=== PATIENT | female | born 1960 | race Caucasian/White ===

== ENCOUNTER 2022-11-24 06:57 | Day surgery (SDC) | payer MEDICAID, SELFPAY ==
[2022-11-24] VITALS (11 sets, daily range): BP systolic 124–149; BP diastolic 57–75; PULSE 60–68; RESP 11–20; TEMP 36.2–36.7; O2SAT 91–99; BMI 30.6
[2022-11-24] MEDS: SODIUM CHLORIDE 0.9 % (FLUSH) 10 ML SYRINGE IVF (07:33)
[2022-11-24] MEDS: LACTATED RINGERS 1000 ML 1,000 ML 100 ML IV (07:33)
[2022-11-24] MEDS: CEFAZOLIN 2 GM INJ IVP (07:46)
[2022-11-24] MEDS: BUPIVACAINE 0.25% 30 ML INJECTION (08:00)
--- NOTE | 2022-11-24 08:45 | W.ANESCHARGE ---
Anesthesia Charges Start Date/Time Anesthesia Start Date: 11/24/22 Anesthesia Start Time: 07:36 Stop Date/Time Anesthesia Stop Date: 11/24/22 Anesthesia Stop Time: 08:53
--- NOTE | 2022-11-24 08:47 | PM.GSPRC ---
Operative Note Pre-op diagnosis: Umbilical hernia, epigastric hernia Post-op diagnosis: Same Type of Procedure: 1. Open repair of umbilical hernia 2. Open repair of epigastric hernia Indications: Patient is a 62-year-old female who presented to clinic with symptomatic hernias. Different treatment options were reviewed, please see consultation note for full discussion. Risks and benefits of operative intervention were discussed at length with the patient. Risks included but was not limited to: Bleeding, infection, risk of damage to surrounding structures, possible need for additional procedures and postoperative complications such as pneumonia, pulmonary emboli or TN. All questions and concerns were addressed with the patient agreeing to proceed. Procedure Description: After discussing the risks and benefits of the procedure, the patient signed informed consent.? The operative site was marked and the patient was brought to the operating room and placed on the operating table in supine position.? Care was taken to pad the patient's pressure points.?? The patient was then intubated by anesthesia.?? The operative site was then prepped and draped in the usual sterile fashion.? A time-out was then performed. A curvilinear incision was made at the umbilicus. Dissection was carried down into the subcutaneous tissue using cautery. The hernia sac was encountered and care was taken to not enter it. Dissection was taken down to the fascia, and the umbilical stock was carefully dissected off of the hernia sac. Once the hernia sac was dissected out circumferentially, the incarcerated preperitoneal fat was partially amputated to allow for reduction. This was passed off to be sent for disposal. The fascial edges were then cleared circumferentially. The hernia was 1 cm in size and so the decision was made for primary closure. The defect was closed with interrupted 0 Nurolon suture. Attention was then directed to the epigastric hernia. Subcutaneous tissue was cleared off superior to the umbilical defect, with evidence of incarcerated preperitoneal fat. This was partially amputated, to allow for reduction. The fat was passed off to be sent for disposal. The fascial edges were then cleared circumferentially. The hernia was 5 mm in size and so the decision was made for primary closure. The defect was closed with interrupted 0 Nurolon suture. Local anesthetic was injected into the fascia, skin and subcutaneous tissues. The umbilicus was reapproximated to the fascia. The skin was then closed with running absorbable suture. A sterile dressing was then applied. ? The patient was then woken and transported to the recovery area in stable condition. ? The patient tolerated the procedure well. Findings: Small umbilical and epigastric hernias, both repaired primarily. Anesthesia: GETA Surgeon: Shereen Malhotra MD Estimated blood loss (mL): 2 Condition: stable Disposition: PACU
--- NOTE | 2022-11-24 08:54 | W.ANESCHARGE ---
Anesthesia Charges Start Date/Time Anesthesia Start Date: 11/24/22 Anesthesia Start Time: 07:36 Stop Date/Time Anesthesia Stop Date: 11/24/22 Anesthesia Stop Time: 08:53
[2022-11-24] MEDS: OXYCODONE 5 MG TABLET PO (10:30)
== END 2022-11-24 10:53 | disposition home or self-care (01) ==
PROVIDERS: PCP Physician Assistant Medical; Visit Provider Surgery
PROC: (CPT 49592; principal; 2022-11-24 07:30)
DX: K42.0 Umbilical hernia with obstruction, without gangrene (principal); K43.6 Other and unspecified ventral hernia with obstruction, without gangrene
CPT/HCPCS: 49592; 00830; A9270; J0330; J0665; J0690; J1100; J1885; J2250; J2405; J2704; J2710; J3010; J7120

== ENCOUNTER 2023-03-14 21:08 | Emergency (ER) | payer MEDICAID, SELFPAY ==
[2023-03-14 21:24] VITALS: BP 153/74; PULSE 63; RESP 16; TEMP 36.4; O2SAT 97; BMI 27.5
--- NOTE | 2023-03-14 21:46 | CRLHL7_ITS ---
For Patients: As a result of the Century Cures Act, medical imaging exams and procedure reports are released immediately into your electronic medical record. You may view this report before your referring provider. If you have questions, please contact your health care provider. INDICATION: Trauma. TECHNIQUE: Whole left ankle radiographs, 3 views. COMPARISON: Left foot radiographs, 03/03/2023. FINDINGS: Acute comminuted displaced fractures of medial and lateral malleolus, with subtle asymmetric widening of the lateral ankle mortise joint space. The talar dome remains smooth. Moderate associated soft tissue swelling. No radiopaque foreign bodies. The calcaneus is intact. Small plantar calcaneal osteophyte. Minimal spurring of the dorsal midfoot. IMPRESSION : Acute comminuted displaced bimalleolar fracture. There is subtle widening of the lateral ankle mortise joint space, which raises the possibility of syndesmotic injury. Moderate overlying soft tissue swelling. Dictated by Forrest Bansal MD @ 03/14/2023 10:17:37 PM (Electronically Signed)
--- NOTE | 2023-03-14 22:11 | ED_ITS ---
HPI - Extremity Injury (Lower) General Chief Complaint: Extremity Pain/Injury, Lower Stated Complaint: Fall- injured ankle Time Seen by Provider: 03/14/23 21:44 History of Present Illness HPI Narrative: Patient is a 62-year-old female presenting for left ankle pain. She says few hours ago she was walking down the steps when she tripped and twisted her left ankle. She caught herself before she fell and denies injuring anything else. States he is unable to walk in her left ankle at that this time in is pain all around the ankle. There is swelling around the ankle. Denies any foot, knee, hip pain. No other injuries noted. Related Data Home Medications Medication Instructions Recorded Confirmed albuterol sulfate 90 mcg/actuation 1 inh inhalation Q4-6H PRN 11/23/22 03/03/23 aerosol inhaler alendronate 70 mg tablet 70 mg PO QWEEK 11/23/22 03/03/23 amlodipine 10 mg tablet 10 mg PO DAILY 11/23/22 03/03/23 bupropion HCl 150 mg 24 hr tablet, 150 mg PO DAILY 11/23/22 03/03/23 extended release cholecalciferol (vitamin D3) 25 1,000 unit PO DAILY 11/23/22 03/03/23 mcg (1,000 unit) capsule escitalopram oxalate 20 mg tablet 20 mg PO DAILY 11/23/22 03/03/23 levothyroxine 50 mcg capsule 50 mcg PO DAILY 11/23/22 03/03/23 omeprazole 20 mg capsule,delayed 20 mg PO DAILY 11/23/22 03/03/23 release propranolol 80 mg capsule,24 80 mg PO DAILY 11/23/22 03/03/23 hr,extended release temazepam 15 mg capsule (Restoril) 15 mg PO QHS 11/23/22 03/03/23 Previous Rx's Medication Instructions Recorded sennosides 8.6 mg capsule (senna) 8.6 mg PO DAILY PRN constipation 11/24/22 #90 caps Allergies Allergy/AdvReac Type Severity Reaction Status Date / Time No Known Drug Allergies Allergy Verified 03/03/23 16:17 Review of Systems Narrative: Negative unless stated in HPI PFSH PFSH Medical History (Updated 03/14/23 @ 22:32 by Abel Dawn, DO) Plantar fasciitis ?M72.2 - Plantar fascial fibromatosis (ICD-10) COPD (chronic obstructive pulmonary disease) with chronic bronchitis ?J44.9 - Chronic obstructive pulmonary disease, unspecified (ICD-10) Hypothyroidism ?E03.9 - Hypothyroidism, unspecified (ICD-10) Unspecified essential hypertension ?I10 - Essential (primary) hypertension (ICD-10) Surgical History (Updated 11/23/22 @ 07:12 by Rosario Galvez RN) H/O total hysterectomy ?Z90.710 - Acquired absence of both cervix and uterus (ICD-10) Social History Smoking Status: Former smoker What tobacco products do you use: cigarettes Smoking quit date/years: >15 years ago How often do you have a drink containing alcohol: never How often do you have six or more drinks on one occasion: Never AUDIT-C Alcohol total score: 0 Non-prescribed substance use: denies use Caffeine: Yes Exam Narrative: Exam Narrative: Const: Well-nourished, Well-developed, in mild distress Eyes: PERRL, no conjunctival injection, and symmetrical lids HENT: Atraumatic external nose and ears. Moist mucous membranes. CVS: Peripheral pulses 2+ and equal in all extremities MSK: Swelling noted to left ankle with severe tenderness noted throughout the ankle. No tenderness noted to the foot, knee, hip. Skin: Warm, Dry. No rashes or lesions. Neuro: Normal Muscle tone, No focal neurological deficits. Psych: Awake, Alert, & Oriented x3. Appropriate mood and affect. Const: Vital Signs, click to edit/add: Vital Signs - 24 hr 03/14/23 21:24 Temperature 97.5 F L Pulse Rate [Pulse Oximeter] 63 Respiratory Rate 16 Blood Pressure [Ri ght Upper Arm] 153/74 H Pulse Oximetry 97 Oxygen Delivery Me thod Room Air Course Vital Signs Vital signs: Initial Vital Signs Temperature 97.5 F L 03/14/23 21:24 Temperature Source Temporal Artery Scan 03/14/23 21:24 Pulse Rate 63 03/14/23 21:24 Respiratory Rate 16 03/14/23 21:24 Blood Pressure 153/74 H 03/14/23 21:24 Blood Pressure Mean 100 03/14/23 21:24 Blood Pressure Position Supine 03/14/23 21:24 Pulse Oximetry 97 03/14/23 21:24 Oxygen Delivery Method Room Air 03/14/23 21:24 Vital Signs Temperature 97.5 F L 03/14/23 21:24 Pulse Rate 63 03/14/23 21:24 Respiratory Rate 16 03/14/23 21:24 Blood Pressure 153/74 H 03/14/23 21:24 Pulse Oximetry 97 03/14/23 21:24 Oxygen Delivery Method Room Air 03/14/23 21:24 Temperature 97.5 F L 03/14/23 21:24 Pulse Rate 63 03/14/23 21:24 Respiratory Rate 16 03/14/23 21:24 Blood Pressure 153/74 H 03/14/23 21:24 Pulse Oximetry 97 03/14/23 21:24 Oxygen Delivery Method Room Air 03/14/23 21:24 Medications Administered Medications: Discontinued Medications Generic Name Dose Route Start Last Admin Trade Name Amberly PRN Reason Stop Dose Admin Ketorolac Tromethamine 30 mg 03/14/23 21:46 03/14/23 22:20 Ketorolac 30 Mg/Ml Inj IM 03/14/23 21:47 30 mg ONCE ONE Administration Oxycodone HCl 5 mg 03/14/23 22:25 03/14/23 22:35 Oxycodone 5 Mg Tablet PO 03/14/23 22:26 5 mg ONCE ONE Administration MDM - Extremity Injury (Lower) MDM Narrative Medical decision making narrative: Patient is 62 year female presenting for left ankle pain. She fell hurting go earlier today. No other injuries noted. We did x-rays of the ankle the clear signs for fracture. Patient will be given a shot of Toradol for pain. X-rays returned showing a bimalleolar fracture with. Patient be placed in a splint and discharged home with oxycodone. She follow-up with orthopedics. Imaging Data Left ankle x-ray: Radiologist's impression: Acute comminuted displaced bimalleolar fracture. There is subtle widening of the lateral ankle mortise joint space, which raises the possibility of syndesmotic injury. Moderate overlying soft tissue swelling. Dictated by Forrest Bansal MD @ 03/14/2023 10:17:37 PM Discharge Plan Discharge Clinical Impression: Ankle fracture Patient Disposition: Home, Self-Care Condition: Stable Instructions: Ankle Fracture (DC) Additional Instructions: Nonweightbearing until cleared by Orthopedics. Follow up with them outpatient. Take Tylenol ibuprofen for pain and if that is not helping use the oxycodone. Return emergency department if you develop numbness for severe pain to ankle or foot. Prescriptions: No Action albuterol sulfate 90 mcg/actuation HFA aerosol inhaler 1 inh inhalation Q4-6H PRN alendronate 70 mg tablet 70 mg PO QWEEK amlodipine 10 mg tablet 10 mg PO DAILY bupropion HCl 150 mg tablet extended release 24 hr 150 mg PO DAILY cholecalciferol (vitamin D3) 25 mcg (1,000 unit) capsule 1,000 unit PO DAILY escitalopram oxalate 20 mg tablet 20 mg PO DAILY levothyroxine 50 mcg capsule 50 mcg PO DAILY omeprazole 20 mg capsule,delayed release(DR/EC) 20 mg PO DAILY propranolol 80 mg capsule,extended release 24hr 80 mg PO DAILY temazepam [Restoril] 15 mg capsule 15 mg PO QHS senna 8.6 mg capsule 8.6 mg PO DAILY PRN (Reason: constipation) Qty: 90 0RF Follow Up/Referrals: Elo Arriaga PA-C [Primary Care Provider] - Stand Alone Forms: [facility] Info Instructions Procedures Orthopedic Splinting/Casting Left ankle: Side: left Lower Extremity Injury Location: ankle Lower extremity immobilizer: posterior splint Applied by clinician: MD/DO Other Orthopedic Equipment: crutches Conclusion: patient tolerated procedure
[2023-03-14] MEDS: KETOROLAC 30 MG/ML inj IM (22:20)
[2023-03-14] MEDS: OXYCODONE 5 MG TABLET PO (22:35)
[2023-03-14 23:19] VITALS: BP 172/75; PULSE 63; RESP 20; O2SAT 96
== END 2023-03-14 23:27 | disposition home or self-care (01) ==
PROVIDERS: Emergency Provider Student in an Organized Health Care Education/Training Program; PCP Physician Assistant Medical
DX: S82.842A Displaced bimalleolar fracture of left lower leg, initial encounter for closed fracture (principal)
CPT/HCPCS: 29125; 73610; 96372; 99283; 99284; A9270; J1885

== ENCOUNTER 2023-03-22 06:56 | Day surgery (SDC) | payer OTHER, SELFPAY ==
[2023-03-22] VITALS (15 sets, daily range): BP systolic 102–155; BP diastolic 54–81; PULSE 53–76; RESP 16; TEMP 36.3–36.6; O2SAT 93–98; BMI 28.3
[2023-03-22] MEDS: LACTATED RINGERS 1000 ML 1,000 ML 100 ML IV (07:05)
--- NOTE | 2023-03-22 07:27 | W.PM.H&PU ---
History & Physical Update History & Physical Update H&P Reviewed and patient assessed: No changes noted
[2023-03-22] MEDS: fentaNYL 100 MCG/2 ML inj IVP (07:35)
[2023-03-22] MEDS: ETHYL CHLORIDE 1 APPLICATION 1 APPLIC TOPICAL (07:40)
--- NOTE | 2023-03-22 07:41 | SUR.PREOP ---
TIME?OUT:?0735 PT/RN/MDA?VERIFICATION?OF?SURGICAL?SITE,?PROCEDURE,?AND?CONSENT OBTAINED?PRIOR?TO?INVASIVE?PROCEDURE.
--- NOTE | 2023-03-22 07:50 | W.PM.NB ---
Nerve Block Nerve Block Time Seen by Provider: 07:44 Date Seen: 03/22/23 Type of block requested by surgeon for post-operative analgesia: popliteal Side: left Time out performed: Yes Verification of patient name: Yes Verification of date of : Yes Site marking: site marked Name of person performing procedure: Chon Continuous monitoring Was continuous monitoring of O2 sat, B/P, lamination operator, recorded every 15 minutes?: Yes Procedure Checklist: sterile prep, needles and gloves Ultrasound guided. Images saved: Yes Medications given in 5ml increments after negative aspiration: Ropivicaine %: 0.5 mL: 20 Needle gauge: 22 Patient tolerated procedure well: Yes Additional comments: Needle noted adjacent to nerve Block Charges Block Charge (with Pro Fee): Sciatic Nerve Use of Ultrasound Machine for Block: Yes- US Guidance/pain block
--- NOTE | 2023-03-22 07:50 | W.PM.NB ---
Nerve Block Nerve Block Time Seen by Provider: 07:44 Date Seen: 03/22/23 Type of block requested by surgeon for post-operative analgesia: adductor canal Side: left Time out performed: Yes Verification of patient name: Yes Verification of date of : Yes Site marking: site marked Name of person performing procedure: Chon Continuous monitoring Was continuous monitoring of O2 sat, B/P, cardiac monitor technician, recorded every 15 minutes?: Yes Procedure Checklist: sterile prep, needles and gloves Ultrasound guided. Images saved: Yes Medications given in 5ml increments after negative aspiration: Ropivicaine %: 0.5 mL: 20 Needle gauge: 20 Patient tolerated procedure well: Yes Additional comments: Needle noted adjacent to nerve Block Charges Block Charge (with Pro Fee): Femoral Nerve Use of Ultrasound Machine for Block: Yes- US Guidance/pain block
--- NOTE | 2023-03-22 07:53 | W.ANESCHARGE ---
Anesthesia Charges Start Date/Time Anesthesia Start Date: 03/22/23 Anesthesia Start Time: 08:02 Stop Date/Time Anesthesia Stop Date: 03/22/23 Anesthesia Stop Time: 11:01
[2023-03-22] MEDS: CEFAZOLIN 2 GM INJ IVP (08:21)
--- NOTE | 2023-03-22 08:30 | CRLHL7_ITS ---
For Patients: As a result of the Cures Act, medical imaging exams and procedure reports are released immediately into your electronic medical record. You may view this report before your referring provider. If you have questions, please contact your health care provider. Indication: Left ORIF Bimalleolar Ankle Technique: Three views left ankle. Fluoroscopic time 67.7 seconds. IMPRESSION: Fluoroscopic guidance for open reduction internal fixation of distal fibula and medial malleolus fracture. Dictated by Leoncio Cox MD @ 03/22/2023 10:11:53 AM (Electronically Signed)
--- NOTE | 2023-03-22 10:15 | PM.ORPRC ---
Procedure Note Date of procedure: 03/22/23 Procedure: PREOPERATIVE DIAGNOSES: 1. Left ankle trimalleolar fracture, closed, acute POSTOPERATIVE DIAGNOSES: 1. Left ankle trimalleolar fracture, closed, acute PROCEDURE: 1. Left ankle bimalleolar fracture open reduction internal fixation. SURGEON: Manish Mccoy MD CAMPUS SECURITY DIRECTOR: Abel Godoy P.A.-C.; An medical records assistant was critical for this case to aide in patient positioning, leg manipulation, tissue retraction, closure, and splinting. ANESTHESIA: Spinal with popliteal and adductor canal blocks IMPLANTS: Arthrex distal fibular locking plate with 2.7 distal locking and 3.5mm proximal nonlocking & locking screws for lateral malleolus fixation; cannulated 4.0 mm partially threaded screw x2 for medial malleolar fixation. TOURNIQUET: 72 minutes at 250 mmHg. INDICATIONS: The patient is a pleasant 62-year-old female who sustained a left ankle injury. Radiographic images confirmed displaced trimalleolar ankle fracture. Given these findings, surgery was recommended to stablize the ankle and allow healing in an anatomic position. Prior to surgery, risks and benefits of the procedure were discussed with patient all questions were answered and informed consent was obtained. FINDINGS: Closed, displaced lateral malleolus fracture, displaced medial malleolus fracture, and a small minimally displaced posterior malleolus fracture. PROCEDURE: Patient was seen preoperatively. Operative site was marked. Abductor and popliteal nerve blocks were then performed by anesthesia staff. The patient was brought to the operating room. Spinal anesthesia was administered and patient was then placed in supine position on the or table. She was given 2 g IV Ancef preoperatively for prophylaxis. A tourniquet placed on the patient's left thigh and left lower extremities prepped and draped in usual sterile fashion. A surgical time-out performed confirming patient identity surgical site surgical procedure. The operative extremity was elevated and exsanguinated, and the tourniquet inflated to 250 mmHg. A longitudinal incision was made overlying the posterior border of the distal fibula. Sharp incision was carried through skin and subcutaneous tissue, while protecting any crossing neurologic structures. The fracture was identified, and cleared of interposed periosteum and fracture hematoma. The surgical site was thoroughly irrigated with normal saline. The fracture was reduced and temporarily held with reduction clamps. An Arthrex distal fibular locking plate was selected and contoured to fit along the lateral aspect of distal fibula. Fluoroscopic imaging confirmed correct plate length and anatomic reduction of the fracture. Plate was fixed proximally with 1 nonlocking screw. Was then fixed distally with unicortical 2.7 mm locking screws. Two additional bicortical locking screws were placed proximally. Attention was then directed to the medial side ankle. A longitudinal incision was made over the medial malleolus incision was carried through subcutaneous tissues. Care was taken to preserve the greater saphenous vein and saphenous nerve. Fracture site was identified anatomic reduction was performed and held in position with a pointed reduction clamp. K-wires for 4.0 mm cannulated screws were then placed in a retrograde fashion across the fracture site. Correct position of the K-wires was confirmed with fluoroscopic imaging. These were then overdrilled with a 2.0 mm drill. 4.0 mm cannulated screws measuring 50 mm in length were then placed with washers over the guidewires. After securing screws into position, the K-wires were removed. Final fluoroscopic images including external rotation stress imaging confirmed anatomic reduction of the medial and lateral malleolus fractures with good placement of the screws and plate.. Ankle mortise was symmetric with no widening of the syndesmosis or medial clear space on stress imaging. The posterior malleolus fracture was also confirmed to be in near anatomic position. This small fracture fragment did not require surgical stabilization. At this stage, the wound was thoroughly irrigated with normal saline. Deep subcutaenous tissues were closed over the plate with #0 Vicryl. The tourniquet was deflated. Total tourniquet time was 72 minutes. Hemostasis achieved with electrocautery. Subcutaneous tissues were closed with 2-0 Vicryl for the subcutaneous tissues. 2-0 Stratafix and 4-0 stratafix was used for closure of the subcuticular layers. Skin was then closed with Exofin glue. Sterile dressings were then applied followed by well-padded posterior short-leg splint. The patient was awoken from anesthesia and transferred to the PACU in stable condition. PLAN: 1. Elevate operative extremity. 2. Encourage ice. 3. Tylenol and oxycodone for pain as needed. 4. Follow up in orthopedic clinic in 2 weeks for splint removal and wound check. 5. Nonweightbearing operative extremity. 6. Discharge home.
--- NOTE | 2023-03-22 11:01 | W.ANESCHARGE ---
Anesthesia Charges Start Date/Time Anesthesia Start Date: 03/22/23 Anesthesia Start Time: 08:02 Stop Date/Time Anesthesia Stop Date: 03/22/23 Anesthesia Stop Time: 11:01
== END 2023-03-22 13:07 | disposition home or self-care (01) ==
PROVIDERS: PCP Physician Assistant Medical; Visit Provider Orthopaedic Surgery
PROC: (CPT 27814; principal; 2023-03-22 08:30)
DX: S82.852A Displaced trimalleolar fracture of left lower leg, initial encounter for closed fracture (principal); G89.18 Other acute postprocedural pain
CPT/HCPCS: 27814; 01480; 64445; 64447; 73600; 76000; 76942; C1713; J0690; J2405; J2704; J3010; J7120

== ENCOUNTER 2023-05-29 14:30 | Outpatient (RCR) | payer OTHER, SELFPAY | END 2023-08-24 10:40 | disposition home or self-care (01) | PROVIDERS: PCP Physician Assistant Medical; Visit Provider Physician Assistant Surgical | DX: Z98.890 Other specified postprocedural states (principal); Z87.81 Personal history of (healed) traumatic fracture; Z74.09 Other reduced mobility; R26.9 Unspecified abnormalities of gait and mobility; R29.898 Other symptoms and signs involving the musculoskeletal system; Z51.89 Encounter for other specified aftercare | CPT/HCPCS: 97110; 97116; 97161 ==

== ENCOUNTER 2023-06-12 10:33 | Day surgery (SDC) | payer OTHER, SELFPAY ==
[2023-06-12] VITALS (14 sets, daily range): BP systolic 115–158; BP diastolic 65–97; PULSE 58–75; RESP 10–16; TEMP 36.1–36.8; O2SAT 88–99; BMI 33.2
--- OUTSIDE RECORDS SUMMARY | 2023-06-12 10:36 | XMS_ITS | Clinical Summary ---
Author Name Unknown Organization [employer] [facility] Address [place], [place] [address] Care Team Providers Care Hvac Manager Name Role Phone Elo Arriaga Primary Care Provider Allergies No known active allergies Medications Medication Sig Dispensed Refills Start Date End Date Status lactobacillus rhamnosus, GG, (CULTURELLE) 10 billion cell capsule Take 1 capsule by mouth once daily if needed for Diarrhea. 0 10/16/19 14 Active MISCELLANEOUS MEDICAL SUPPLY (GRADUATED COMPRESSION STOCKINGS)Indicatio ns:Restless legs syndrome (RLS) 20-30 mm/Hg calf high compression stockings - Venous insufficiency 6 Packet 0 05/22/19 15 Active cholecalciferol (VITAMIN D) 1,000 unit capsule Take 1 capsule by mouth once daily. 0 12/29/19 18 Active meclizine (ANTIVERT) 25 mg tabletIndications:V ertigo Take 1 Tablet (25 mg) by mouth every 8 hours if needed for Vertigo. 30 Tablet 0 12/28/19 22 Active polyethylene glycoL (MIRALAX) 17 gram/scoop powderIndications:C onstipation, unspecified constipation type Mix 1 scoop (17 g) in liquid then take by mouth once daily. 510 g 1 09/22/19 23 Active amLODIPine (NORVASC) 10 mg tabletIndications:H TN (hypertension) TAKE ONE TABLET BY MOUTH ONE TIME DAILY 90 Tablet 1 05/29/19 24 Active alendronate (FOSAMAX) 70 mg tabletIndications:O steoporosis, unspecified osteoporosis type, unspecified pathological fracture presence Take on empty stomach with full glass of water. Do not lie down for 1 hr.TAKE 1 TABLET BY MOUTH ONCE WEEKLY IN THE MORNING ON AN EMPTY STOMACH WITH A BIG GLASS OF WATER. DO NOT LIE DOWN FOR 60 MINUTES AFTERWARDS. 13 Tablet 3 06/09/19 24 Active buPROPion (WELLBUTRIN XL) 150 mg Extended-Release tabletIndications:D epression, major, single episode, moderate (HC) Take 1 Tablet (150 mg) by mouth once daily. 90 Tablet 3 06/09/19 24 Active escitalopram oxalate (LEXAPRO) 20 mg tabletIndications:D epression, major, single episode, moderate (HC) TAKE ONE TABLET BY MOUTH EVERY DAY IN THE MORNING. 90 Tablet 3 06/09/19 24 Active levothyroxine (SYNTHROID) 50 mcg tabletIndications:O ther specified hypothyroidism Take 1 Tablet (50 mcg) by mouth before breakfast. 90 Tablet 06/09/19 24 Active omeprazole (PRILOSEC) 20 mg Delayed-Release capsuleIndications: Gastrointestinal hemorrhage, unspecified gastrointestinal hemorrhage type Take 1 Capsule (20 mg) by mouth two times daily before meals. 180 Capsule 06/09/19 24 Active propranolol ER (INDERAL LA) 80 mg Cs24 Sustained-Release capsuleIndications: Essential hypertension Take 1 Capsule (80 mg) by mouth once daily. 90 Capsule 3 06/09/19 24 Active albuterol HFA (Ventolin HFA) 90 mcg/actuation inhalerIndications: Cough, unspecified type,COPD with chronic bronchitis Inhale 1-2 Puffs by mouth every 4 hours while awake. 18 g 0 06/09/19 24 Active fluticasone propion-salmeteroL (Advair Diskus) 250-50 mcg/Dose diskus inhalerIndications: COPD with chronic bronchitis Inhale 1 Puff by mouth two times daily. 1 Each 2 06/09/19 24 Active folic acid 1 mg tabletIndications:G astrointestinal hemorrhage, unspecified gastrointestinal hemorrhage type Take 1 Tablet (1 mg) by mouth once daily. 90 Tablet 3 06/09/19 24 Active busPIRone (BUSPAR) 10 mg tabletIndications:A nxiety Take 1 Tablet (10 mg) by mouth two times daily. 180 Tablet 06/09/19 24 Active pramipexole (MIRAPEX) 0.125 mg tabletIndications:R LS (restless legs syndrome) Take 0.125mg -0.25 (1-2 tab) by mouth 2-3 hours before bedtime 180 Tablet 3 06/09/19 24 Active albuterol HFA (Ventolin HFA) 90 mcg/actuation inhalerIndications: Cough,COPD with chronic bronchitis Inhale 1-2 Puffs by mouth every 4 hours while awake. 18 g 0 07/31/19 21 024 Discontinued(Re order (E-cancel not sent)) fluticasone propion-salmeteroL (Advair Diskus) 250-50 mcg/Dose diskus inhalerIndications: COPD with chronic bronchitis Inhale 1 Puff by mouth 2 times daily. 1 Inhaler 5 09/10/19 21 024 Discontinued(Re order (E-cancel not sent)) propranolol ER (INDERAL LA) 80 mg Cs24 Sustained-Release capsuleIndications: Essential hypertension Take 1 Capsule (80 mg) by mouth once daily. 90 Capsule 3 05/10/19 024 Discontinued omeprazole (PRILOSEC) 20 mg Delayed-Release capsuleIndications: Gastrointestinal hemorrhage, unspecified gastrointestinal hemorrhage type Take 1 Capsule (20 mg) by mouth two times daily before meals. 180 Capsule 3 05/10/19 024 Discontinued(Re order (E-cancel not sent)) levothyroxine (SYNTHROID) 50 mcg tabletIndications:O ther specified hypothyroidism Take 1 Tablet (50 mcg) by mouth before breakfast. 90 Tablet 3 05/10/19 024 Discontinued escitalopram oxalate (LEXAPRO) 20 mg tabletIndications:D epression, major, single episode, moderate (HC) TAKE ONE TABLET BY MOUTH EVERY DAY IN THE MORNING. 90 Tablet 3 05/10/19 024 Discontinued buPROPion (WELLBUTRIN XL) 150 mg Extended-Release tabletIndications:D epression, major, single episode, moderate (HC) Take 1 Tablet (150 mg) by mouth every morning. 90 Tablet 3 05/10/19 024 Discontinued amLODIPine (NORVASC) 10 mg tabletIndications:H TN (hypertension) Take 1 Tablet (10 mg) by mouth once daily. 90 Tablet 3 05/10/19 23 024 Discontinued alendronate (FOSAMAX) 70 mg tabletIndications:O steoporosis, unspecified osteoporosis type, unspecified pathological fracture presence Take on empty stomach with full glass of water. Do not lie down for 1 hr.TAKE 1 TABLET BY MOUTH ONCE WEEKLY IN THE MORNING ON AN EMPTY STOMACH WITH A BIG GLASS OF WATER. DO NOT LIE DOWN FOR 60 MINUTES AFTERWARDS. 13 Tablet 3 05/10/19 23 024 Discontinued(Re order (E-cancel not sent)) temazepam (RESTORIL) 15 mg capsuleIndications: Restless legs syndrome (RLS) TAKE ONE OR TWO CAPSULE BY MOUTH DAILY AT BEDTIME NEEDED FOR RESTLESS LEG SYNDROME. 180 Capsule 0 03/08/20 23 024 Discontinued(*M edication adjustment) folic acid 1 mg tabletIndications:G astrointestinal hemorrhage, unspecified gastrointestinal hemorrhage type Take 1 Tablet (1 mg) by mouth once daily. 90 Tablet 1 04/13/20 23 024 Discontinued(Re order (E-cancel not sent)) busPIRone (BUSPAR) 10 mg tabletIndications:A nxiety TAKE ONE TABLET BY MOUTH TWICE DAILY 180 Tablet 1 04/19/20 23 024 Discontinued(Re order (E-cancel not sent)) buPROPion (WELLBUTRIN XL) 150 mg Extended-Release tabletIndications:D epression, major, single episode, moderate (HC) TAKE ONE TABLET BY MOUTH EVERY DAY IN THE MORNING. 30 Tablet 0 05/15/19 24 024 Discontinued(Re order (E-cancel not sent)) levothyroxine (SYNTHROID) 50 mcg tabletIndications:O ther specified hypothyroidism TAKE ONE TABLET BY MOUTH ONE TIME DAILY BEFORE BREAKFAST 90 Tablet 0 05/15/19 24 024 Discontinued(Re order (E-cancel not sent)) escitalopram oxalate (LEXAPRO) 20 mg tabletIndications:D epression, major, single episode, moderate (HC) TAKE ONE TABLET BY MOUTH EVERY DAY IN THE MORNING. 30 Tablet 0 05/15/19 24 024 Discontinued(Re order (E-cancel not sent)) propranolol ER (INDERAL LA) 80 mg Cs24 Sustained-Release capsuleIndications: Essential hypertension TAKE ONE CAPSULE BY MOUTH ONE TIME DAILY 30 Capsule 0 05/30/19 24 024 Discontinued(Re order (E-cancel not sent)) Active Problems Problem Noted Date Diagnosed Date Chronic obstructive pulmonar y disease, unspecified COPD type 06/09/2023 H/O total hysterectomy 08/25/2021 COPD with chronic bronchitis 08/20/2021 Age-related osteoporosis trey malcolm current pathological fracture 01/05/2017 Vitamin D deficiency 12/14/2016 Pre-diabetes 10/17/2013 Esophageal varices 11/26/2010 Menorrhagia 11/25/2010 Restless legs syndrome (RLS) 09/07/2010 Hyponatremia 11/18/2009 GI bleed 11/17/2009 Alcohol withdrawal 10/05/2006 Unspecified essential hypertension Hypothyroidism Resolved Problems Problem Noted Date Diagnosed Date Resolved Date Alcohol Withdrawal Seizure 10/05/2006 0 05/10/2022 Encounters Date Type Department Care Team Description 06/09/2023 1:00 PM CAPACITOR ASSEMBLER Office Visit [facility] [address] [place] [address] Elo Arriaga PA Physical (63 years old); Preoperative Exam (L ankle); Medication Management (Temazepam isnt working well anymore for her) 06/09/2023 Travel 05/29/2023 Refill [facility] [address] [place] [address] Elo Arriaga PA Refill Request (Propranolol Er) 05/28/2023 Refill [facility] [address] [place] [address] Elo Arriaga PA Refill Request (Amlodipine) 05/14/2023 Refill [facility] [address] [place] [address] Elo Arriaga PA Refill Request (Bupropion, Levothyroxine, Escitalopram Oxalate) 04/17/2023 Refill [facility] [address] [place] [address] Elo Arriaga PA Refill Request (Buspirone) 04/12/2023 Refill [facility] [address] [place] [address] Elo Arriaga PA Refill Request (Folic Acid) 03/22/2023 Orders Only [facility] Scanner 1 scan: (1-Ord) [facility], XR ANKLE LT 2V, 03/22/2023 03/20/2023 7:30 AM CAPACITOR ASSEMBLER Preop Visit [facility] [address] [place] [phone] Gwen Lai, EWA Pre-Op Exam 03/20/2023 Travel from Last 3 Months Immunizations Name Administration Dates Next Due AMB INFLUENZA, IIV4 (AGE=>6M OS) MDV (Flu Clinic Only) 02/17/2020 COVID-19 vaccine (Moderna 100mcg/0.5mL) PF, MDV 06/15/2020,05/18/2020 Influenza RIV4 (Age 18+ Year s) PRESERV FREE 01/12/2021 Influenza Virus, Unspecified 02/24/2014 Influenza, IIV3 (Age 6-35 mos) 01/21/2010 Influenza, IIV4 02/07/2023, 2,02/08/2019,2016 Pneumococcal Poly,23-Valent (Pneumovax) 12/22/2009 Tdap 06/09/2023,08/30/2012 Zoster (Shingrix-RZV, recombinant) 07/11/2022, Zoster (Zostavax-ZVL, live) 09/14/2012 Family History Medical History Relation Name Comments Other Father BPH/kidney fail ure, on dialysis Thyroid Disease Father hypothyroid Bone cancer Half-Sister Brain cancer Half-Sister Lung cancer Half-Sister Osteoporosis Mother Other Mother dementia Thyroid Disease Mother hypothyroid Brain cancer Other Lung cancer Other Lupus Sister Thyroid Disease Sister three with h ypothyroid Cancer-breast No Family History Cancer-ovarian No Family History Relation Name Status Comments Father (Age 84) dialysis x 3 yr. developed bladder ca Half-Sister Alive Mother (Age 77) Other Alive Niece Sister Social History Tobacco Use Types Packs/Day Years Used Date Smoking Tobacco: Former Cigarettes 0.3 41.8 S tarted: 08/12/1981 Smokeless Tobacco: Never Tobacco Cessation:Counseling Given: Yes Alcohol Use Standard Drinks/Week Comments No 0 (1 standard drink = 0.6 oz pur e alcohol) sober since November 18, 2009 PHQ-2 Answer Date Recorded PHQ-2 TOTAL SCORE 4 11/08/2022 Social Connections Answer Date Recorded Frequency of Communication with Friends and Fami ly 0 03/20/2023 Financial Resource Strain Answer Date R ecorded Difficulty of Paying Living Expenses 3 03/20/2023 Difficulty of Paying Living Expenses Not on file 03/20/2023 Food Insecurity Answer Date Recorded Worried About Running Out of Food in the Last Ye ar 1 03/20/2023 Transportation Needs Answer Date Record ed Lack of Transportation (Medical) 1 03/20/2023 Housing Stability Answer Date Recorded Unable to Pay for Housing in the Last Year 1 03/20/2023 Sex and Gender Information Value Date Recorded Sex Assigned at Not on file Gender Identity Not on file Sexual Orientation Not on file Obstetrics History Para Term AB IAB SAB Ectopic Multiple Livin g Live Births 2 2 Date Outcome GA Total Labor Labor/2nd/3rd Weight Sex Delivery Anes PTL Nhi A1 A5 Name Cl in Last Filed Vital Signs Vital Sign Reading Time Taken Comments Blood Pressure 118/74 06/09/2023 1:10 PM CAPACITOR ASSEMBLER Pulse 55 06/09/2023 1:10 PM CAPACITOR ASSEMBLER Temperature 36.6 ??C (97.9 ??F) 03/20/2023 7:43 AM CS T Respiratory Rate 16 11/24/2009 11:06 AM CDT Oxygen Saturation 96% 03/20/2023 7:43 AM CAPACITOR ASSEMBLER Inhaled Oxygen Concentration - - Weight 84.8 kg (187 lb) 06/09/2023 1:10 PM CAPACITOR ASSEMBLER Height 162 cm (5' 3.78) 06/09/2023 1:10 PM CAPACITOR ASSEMBLER Body Mass Index 32.32 06/09/2023 1:10 PM CAPACITOR ASSEMBLER Plan of Treatment Upcoming Encounters Date Type Department Care Team (Late st Contact Info) Description 06/19/2023 11:30 AM CAPACITOR ASSEMBLER Ancillary Procedure [facility] [address] [place] [address] Health Maintenance Due Date Last Done Comments HIV for age 15-65 1977 Pneumococcal series for age 6-64 (2 of 2 - PCV) 12/22/2010 12/22/2009 Fecal testing non-DNA (FIT,FOBT,iFOBT) for age 45-75 08/19/2023 08/18/2022, 03/15/2021, 02/19/2020, Additional history exists Depression screening for age 12+ 11/09/2023 11/08/2022, 10/07/2021, 09/09/2020, Additional history exists Mammogram for age 45-75 02/23/2024 02/23/20, 02/21/2022, 02/19/2021, Additional history exists BMI (ht and wt on same day) for age 18+ 06/09/2024 06/09/2023, 05/10/2022, 08/20/2021, Additional history exists Lipids for age 45-75 06/09/2028 06/09/2023, 05/10/2022, 03/12/2021, Additional history exists Tetanus booster 06/09/2033 06/09/2023, 0506/2012, 08/30/2012, Additional history exists Hepatitis C screening for ag e 18-79 Completed 07/29/2009 Zoster (shingles) series for age 50+ Completed 07/11/2022, 05/10/2022, 09/14/2012 COVID-19 vaccine series Completed 02/08/20, 02/16/2022, 03/03/2021, Additional history exists Influenza for age 50-64 Completed 02/08/20, 02/10/2022, 01/12/2021, Additional history exists Tdap Completed 06/09/2023, 08/30/2012 Procedures Procedure Name Priority Date/Time Associated Diagnosis Comments T4,FREE Routine 06/09/2023 1:58 PM CAPACITOR ASSEMBLER Other specified hypothyroidism HEMOGLOBIN Routine 06/09/2023 1:58 PM CAPACITOR ASSEMBLER Preop general physical exam LIPID PANEL W REFLEX MEASURED LDL Routine 06/09/2023 1:58 PM CAPACITOR ASSEMBLER Screening cholesterol level TSH WITH REFLEX Routine 06/09/2023 1:58 PM CAPACITOR ASSEMBLER Other specified hypothyroidism BASIC METABOLIC PANEL Routine 06/09/2023 1:58 PM CAPACITOR ASSEMBLER Screening for diabetes mellitus SCAN-RADIOLOGY REPORT 03/22/2023 12:00 AM CAPACITOR ASSEMBLER POTASSIUM,ISTAT Routine 03/20/2023 8:16 AM CAPACITOR ASSEMBLER Pre-op examination from Last 3 Months Results * (ABNORMAL) TSH WITH REFLEX (06/09/2023 1:58 PM CAPACITOR ASSEMBLER) TSH 7.75(H) 0.27 - 4.20 uIU/mL 06/09/2023 9:24 PM CAPACITOR ASSEMBLER [facility] Blood BLOOD SPECIMEN / Unknown Venipuncture / Unknown 06/09/2023 1:58 PM CAPACITOR ASSEMBLER 06/09/2023 1:58 PM CAPACITOR ASSEMBLER [facility] - 06/09/2023 9:24 PM CAPACITOR ASSEMBLER In Adults, TSH values between 5.00 and 10.00 uIU/ml do not necessarily indicate the presence of Hypothyroidism. Correlation with clinical findings such as presence of goiter and/or Thyroperoxidase (TPO) Antibody may be helpful. For more information please refer to MARIUSZ 2004; 291: 228-238. Elo GARCIA CHEMISTRY [facility] [address] [place] [address], * LIPID PANEL W REFLEX MEASURED LDL (06/09/2023 1:58 PM CAPACITOR ASSEMBLER) CHOLESTEROL,TOTAL 190 100 - 199 mg/dL 06/09/2023 9:24 PM CAPACITOR ASSEMBLER [facility] Comment: Cholesterol, Total Reference Ranges Desirable <200 mg/dL Borderline 200-239 mg/dL High >=240 mg/dL TRIGLYCERIDES 94 <150 mg/dL 06/09/2023 9:24 PM CAPACITOR ASSEMBLER [facility] HDL CHOLESTEROL 59 >40 mg/dL 9:24 PM CAPACITOR ASSEMBLER [facility] NON-HDL CHOLESTEROL 131 <145 mg/dl 06/09/2023 9:24 PM CAPACITOR ASSEMBLER [facility] CHOL/HDL RATIO 3.22 <4.50 06/09/2023 9:24 PM CAPACITOR ASSEMBLER [facility] LDL CHOLESTEROL 112 <=130 mg/dL 06/09/2023 9:24 PM CAPACITOR ASSEMBLER [facility] VLDL CHOLESTEROL 19 <=30 mg/dL 06/09/2023 9:24 PM CAPACITOR ASSEMBLER [facility] PROVIDER ORDERED STATUS RANDOM 06/09/2023 9:24 PM CAPACITOR ASSEMBLER [facility] Blood BLOOD SPECIMEN / Unknown Venipuncture / Unknown 06/09/2023 1:58 PM CAPACITOR ASSEMBLER 06/09/2023 1:58 PM CAPACITOR ASSEMBLER Elo GARCIA CHEMISTRY [facility] [address] [place] [address], * (ABNORMAL) HEMOGLOBIN (06/09/2023 1:58 PM CAPACITOR ASSEMBLER) HEMOGLOBIN 10.5(L) 12.0 - 16.0 g/dL 06/09/2023 2:07 PM CAPACITOR ASSEMBLER [facility] MCV 86 80 - 100 fL 06/09/2023 2:07 PM CAPACITOR ASSEMBLER [facility] Blood BLOOD SPECIMEN / Unknown Venipuncture / Unknown 06/09/2023 1:58 PM CAPACITOR ASSEMBLER 06/09/2023 1:58 PM CAPACITOR ASSEMBLER Elo GARCIA HEMATOLOGY [facility] [address] [place] [address], * T4,FREE (06/09/2023 1:58 PM CAPACITOR ASSEMBLER) T4,FREE 1.12 0.93 - 1.70 ng/dL 06/09/2023 10:37 PM CAPACITOR ASSEMBLER [facility] Blood BLOOD SPECIMEN / Unknown Venipuncture / Unknown 06/09/2023 1:58 PM CAPACITOR ASSEMBLER 06/09/2023 1:58 PM CAPACITOR ASSEMBLER Elo GARCIA CHEMISTRY [facility] [address] [place] [address], * (ABNORMAL) BASIC METABOLIC PANEL (06/09/2023 1:58 PM CAPACITOR ASSEMBLER) SODIUM 133(L) 136 - 145 mmol/L 06/09/2023 9:26 PM [facility] POTASSIUM 5.6(H) 3.5 - 5.1 mmol/L 06/09/2023 9:26 PM [facility] CHLORIDE 97(L) 98 - 107 mmol/L 06/09/2023 9:26 PM [facility] CO2,TOTAL 26 22 - 29 mmol/L 06/09/2023 9:26 PM [facility] ANION GAP 10 5 - 18 06/09/2023 9:26 PM [facility] GLUCOSE 91 70 - 99 mg/dL 06/09/2023 9:26 PM [facility] CALCIUM 9.6 8.8 - 10.2 mg/dL 06/09/2023 9:26 PM [facility] BUN 13 8 - 23 mg/dL 06/09/2023 9:26 PM [facility] CREATININE 0.91(H) 0.50 - 0.90 mg/dL 06/09/2023 9:26 PM [facility] BUN/CREAT RATIO 14 10 - 20 9:26 PM [facility] eGFR 72(L) >90 mL/min/1.7 3m2 06/09/2023 9:26 PM [facility] Comment:As of 2021, eG FR is calculated by the CKD-EPI creatinine equation without race adjustment. ??eGFR can be influenced by muscle mass, exercise, and diet. ??The reported eGFR is an estimation only and is only applicable if the renal function is stable. Blood BLOOD SPECIMEN / Unknown Venipuncture / Unknown 06/09/2023 1:58 PM CAPACITOR ASSEMBLER 06/09/2023 1:58 PM CAPACITOR ASSEMBLER Elo GARCIA CHEMISTRY Performing Organization Address City/[facility]/ZIP Co de Phone Number [facility] [address] [place] [address], [place] * SCAN-RADIOLOGY REPORT (03/22/2023 12:00 AM CAPACITOR ASSEMBLER) Anatomical Region Laterality Modality Other Scanner OTHER * POTASSIUM,ISTAT (03/20/2023 8:16 AM CAPACITOR ASSEMBLER) POTASSIUM, POCT 4.4 3.5 - 5.0 mmol/L 03/20/2023 8:19 AM CAPACITOR ASSEMBLER [facility] Blood BLOOD SPECIMEN / Unknown 03/20/2023 8:16 AM CAPACITOR ASSEMBLER 03/20/2023 8:19 AM CAPACITOR ASSEMBLER Gwen BRIANM CHEMISTRY Performing Organization Address City/[facility]/[place] Co de Phone Number [facility] [address] [place] [address], from Last 3 Months Advance Directives Latest Code Status on File Code Status Date Activated Date Inactivated Comments Full Code 11/18/2009 12:22 AM 11/24/2009 5:08 PM Code Status History Code Status Date Activated Date Inactivated Comments Full Code 10/05/2006 8:54 PM 10/17/2006 4:11 PM Care Teams Hvac Manager Relationship Specialty Start Date End Date El[place] [address] PCP - General Physician Manager Drug Safety 02/19/21
[2023-06-12] MEDS: LACTATED RINGERS 1000 ML 1,000 ML 100 ML IV (10:55)
[2023-06-12] MEDS: SODIUM CHLORIDE 0.9 % (FLUSH) 10 ML SYRINGE IVF (11:35)
--- NOTE | 2023-06-12 12:05 | W.PM.H&PU ---
History & Physical Update History & Physical Update H&P Reviewed and patient assessed: The following changes are noted below H&P Updates: Patient states the redness and warmth have improved over the past few days with oral antibiotics. However, she has been having a small amount of yellowish drainage from the incision site. She denies any fevers or chills.
--- NOTE | 2023-06-12 12:09 | P.ORPRC_ITS ---
Procedure Note Date of procedure: 06/12/23 Procedure: PREOPERATIVE DIAGNOSIS: 1. Left lower leg postoperative wound infection POSTOPERATIVE DIAGNOSIS: 1. Left lower leg postoperative wound infection PROCEDURE: 1. Left leg irrigation and debridement SURGEON: Manish Mccoy MD. HYDRAULIC LIFT OPERATOR: Ilana Wheat P.A-C. - An assistant auto center manager was critical for this case to aid in patient positioning, tissue retraction, limb manipulation/positioning, and closure. ANESTHESIA: General IMPLANTS: None TOURNIQUET: 15 minutes at 250 mmHg ESTIMATED BLOOD LOSS: 5 mL COMPLICATIONS: None SPECIMENS: Subcutaneous swabs x2 and subcutaneous soft tissue x1 sent for anaerobic/aerobic cultures and Gram stain. INDICATIONS: The patient is a pleasant 63-year-old female who underwent open reduction internal fixation of a bimalleolar ankle fracture on 03/22/2023. Last week, she developed warmth and redness concerning for cellulitis and was started on oral antibiotics. Redness and warmth improved, however she began having yellowish drainage from the middle aspect of her lateral surgical incision. Recommendation was subsequently made for surgical intervention consisting of left lower leg incision and drainage. Prior to surgery risks and benefits of the procedure were discussed with patient, all questions were answered, and informed consent was obtained. FINDINGS: There small area of wound dehiscence was measured 1 cm x 0.5 cm in the middle aspect of the surgical incision site. There was small amount of serosanguineous drainage noted from this site. Proximally, there is a small eschar which measured 0.5 cm in length. Remainder of the surgical incision was well healed. Deep to the subcutaneous tissues there was a deep space which tracked anteriorly under beneath the subcutaneous tissues that measured 8 cm x 5 cm in size. There was a small amount of serosanguineous fluid in this space but no obvious purulent drainage. This did not communicate with the distal fibula plate, screws, or fracture site. DESCRIPTION OF PROCEDURE: Patient was seen preoperatively and operative site was marked. She was then brought to the operating room placed in supine position or table. General anesthesia was administered. A tourniquet was placed on the patient's left leg and left lower extremities prepped and draped in usual sterile fashion. Surgical time-out was performed confirming patient identity, surgical site, surgical procedure. Left leg was elevated exsanguinated with Esmarch and tourniquet inflated 250 mmHg. An incision measured approximately a cm was made using the previous surgical incision site. The skin edges were sharply debrided, and the small area of wound dehiscence was sharply excised using 11 blade. Upon incising through the skin and subcutaneous tissues, space which measured approximately 8 cm x 5 cm was encountered under the subcutaneous tissues anteriorly. There was a small amount of serosanguineous fluid noted in the space, but no obvious purulence. Deep subcutaneous swabs were sent for anaerobic/aerobic cultures and Gram stain. Subcutaneous tissue was also sent for anaerobic/aerobic cultures and Gram stain. After cultures were obtained, patient was provided with 2 g of IV Ancef. This space and wound edges were debrided with a curette. The surgical incision and deep subcutaneous space was then irrigated with over 3 L of normal saline. Tourniquet was released, and and only a small amount of bleeding was encountered. Total tourniquet time was 15 minutes. Skin was then closed with 3-0 nylon vertical mattress sutures. Sterile dressings were applied were applied. The patient was awoken from anesthesia and transferred the PACU in stable condition. PLAN: 1. Weight bear as tolerated 2. Continue Keflex 500 mg 4 times daily for a total 14 days. - will follow cultures and adjust antibiotics as necessary. 3. Ice and elevation as needed for pain and swelling 4. Tylenol and/or tramadol as needed for pain control. 5. Follow-up in orthopedic clinic in 10-14 days for wound check and suture removal.
[2023-06-12] MEDS: CEFAZOLIN 2 GM INJ IVP (12:45)
--- NOTE | 2023-06-12 12:56 | W.ANESCHARGE ---
Anesthesia Charges Start Date/Time Anesthesia Start Date: 06/12/23 Anesthesia Start Time: 12:13 Stop Date/Time Anesthesia Stop Date: 06/12/23 Anesthesia Stop Time: 13:25
--- NOTE | 2023-06-12 12:57 | W.ANESCHARGE ---
Anesthesia Charges Start Date/Time Anesthesia Start Date: 06/12/23 Anesthesia Start Time: 12:13 Stop Date/Time Anesthesia Stop Date: 06/12/23 Anesthesia Stop Time: 13:25
[2023-06-12] MEDS: BUPIVACAINE 0.25% 30 ML 15 ML INJECTION (13:10)
[2023-06-12] MEDS: fentaNYL 100 MCG/2 ML inj 50 MCG IVP ×2 (13:41→13:50)
[2023-06-12] MEDS: HYDROCODONE-ACETAMIN 5-325 MG 1 TAB PO (14:38)
== END 2023-06-12 15:49 | disposition home or self-care (01) ==
PROVIDERS: PCP Physician Assistant Medical; Visit Provider Orthopaedic Surgery
PROC: (CPT 10180; principal; 2023-06-12 12:00)
DX: T81.42XA Infection following a procedure, deep incisional surgical site, initial encounter (principal); L03.116 Cellulitis of left lower limb; B95.61 Methicillin susceptible Staphylococcus aureus infection as the cause of diseases classified elsewhere
CPT/HCPCS: 10180; 01470; 87070; 87075; 87186; 87205; A9270; J0665; J0690; J2250; J2405; J2704; J3010; J7120

== ENCOUNTER 2023-12-29 09:55 | Outpatient (CLI) | payer MEDICAID, SELFPAY ==
--- OUTSIDE RECORDS SUMMARY | 2023-12-29 09:58 | XMS_ITS | Clinical Summary ---
Author Organization [facility] Address [place], [place] [address] Care Team Providers Care Real Estate Transaction Coordinator Name Role Phone Elo Arriaga Primary Care Provider Allergies No known active allergies Medications Medication Sig Dispensed Refills Start Date End Date Status lactobacillus rhamnosus, GG, (CULTURELLE) 10 billion cell capsule Take 1 capsule by mouth once daily if needed for Diarrhea. 0 4 Active MISCELLANEOUS MEDICAL SUPPLY (GRADUATED COMPRESSION STOCKINGS)Indication s:Restless legs syndrome (RLS) 20-30 mm/Hg calf high compression stockings - Venous insufficiency 6 Packet prn 5 Active cholecalciferol (VITAMIN D) 1,000 unit capsule Take 1 capsule by mouth once daily. 0 8 Active meclizine (ANTIVERT) 25 mg tabletIndications:Ve rtigo Take 1 Tablet (25 mg) by mouth every 8 hours if needed for Vertigo. 30 Tablet 2 Active polyethylene glycoL (MIRALAX) 17 gram/scoop powderIndications:Co nstipation, unspecified constipation type Mix 1 scoop (17 g) in liquid then take by mouth once daily. 510 g 1 3 Active amLODIPine (NORVASC) 10 mg tabletIndications:HT N (hypertension) TAKE ONE TABLET BY MOUTH ONE TIME DAILY 90 Tablet 1 4 Active alendronate (FOSAMAX) 70 mg tabletIndications:Os teoporosis, unspecified osteoporosis type, unspecified pathological fracture presence Take on empty stomach with full glass of water. Do not lie down for 1 hr.TAKE 1 TABLET BY MOUTH ONCE WEEKLY IN THE MORNING ON AN EMPTY STOMACH WITH A BIG GLASS OF WATER. DO NOT LIE DOWN FOR 60 MINUTES AFTERWARDS. 13 Tablet 3 4 Active buPROPion (WELLBUTRIN XL) 150 mg Extended-Release tabletIndications:De pression, major, single episode, moderate (HC) Take 1 Tablet (150 mg) by mouth once daily. 90 Tablet 3 4 Active escitalopram oxalate (LEXAPRO) 20 mg tabletIndications:De pression, major, single episode, moderate (HC) TAKE ONE TABLET BY MOUTH EVERY DAY IN THE MORNING. 90 Tablet 3 4 Active omeprazole (PRILOSEC) 20 mg Delayed-Release capsuleIndications:G astrointestinal hemorrhage, unspecified gastrointestinal hemorrhage type Take 1 Capsule (20 mg) by mouth two times daily before meals. 180 Capsule 3 4 Active propranolol ER (INDERAL LA) 80 mg Cs24 Sustained-Release capsuleIndications:E ssential hypertension Take 1 Capsule (80 mg) by mouth once daily. 90 Capsule 3 4 Active albuterol HFA (Ventolin HFA) 90 mcg/actuation inhalerIndications:C ough, unspecified type,COPD with chronic bronchitis (HC) Inhale 1-2 Puffs by mouth every 4 hours while awake. 18 g 4 Active fluticasone propion-salmeteroL (Advair Diskus) 250-50 mcg/Dose diskus inhalerIndications:C OPD with chronic bronchitis (HC) Inhale 1 Puff by mouth two times daily. 1 Each 2 4 Active folic acid 1 mg tabletIndications:Ga strointestinal hemorrhage, unspecified gastrointestinal hemorrhage type Take 1 Tablet (1 mg) by mouth once daily. 90 Tablet 3 4 Active busPIRone (BUSPAR) 10 mg tabletIndications:An xiety Take 1 Tablet (10 mg) by mouth two times daily. 180 Tablet 3 4 Active cyclobenzaprine (FLEXERIL) 10 mg tabletIndications:Ac tejinder bilateral thoracic back pain Take 1 Tablet (10 mg) by mouth 2 times daily if needed for Muscle Spasm. 20 Tablet 4 Active pramipexole (MIRAPEX) 0.25 mg tabletIndications:RL S (restless legs syndrome) Take 3 Tablets (0.75 mg) by mouth at bedtime. 270 Tablet 4 Active levothyroxine (SYNTHROID) 75 mcg tabletIndications:Ot her specified hypothyroidism Take 1 Tablet (75 mcg) by mouth before breakfast. 90 Tablet 1 4 Active levothyroxine (SYNTHROID) 50 mcg tabletIndications:Ot her specified hypothyroidism Take 1 Tablet (50 mcg) by mouth before breakfast. 90 Tablet 3 4 12/27/19 24 Discontinu ed(*Medica tion adjustment ) pramipexole (MIRAPEX) 0.25 mg tabletIndications:RL S (restless legs syndrome) Take 2 Tablets (0.5 mg) by mouth at bedtime. 180 Tablet 1 4 12/08/19 24 Discontinu ed(Reorder (E-cancel not sent)) Active Problems Problem Noted Date Diagnosed Date Chronic obstructive pulmonar y disease, unspecified COPD type 06/09/2023 H/O total hysterectomy 08/25/2021 COPD with chronic bronchitis 08/20/2021 Age-related osteoporosis wit sarahiut current pathological fracture 01/05/2017 Vitamin D deficiency 12/14/2016 Pre-diabetes 10/17/2013 Menorrhagia 11/25/2010 Restless legs syndrome (RLS) 09/07/2010 Hyponatremia 11/18/2009 GI bleed 11/17/2009 Unspecified essential hypertension Hypothyroidism Resolved Problems Problem Noted Date Diagnosed Date Resolved Date Esophageal varices 11/26/2010 4 Alcohol Withdrawal Seizure 10/05/2006 0 05/10/2022 Alcohol withdrawal 10/05/2006 4 Encounters Date Type Department Care Team Description 12/27/2023 Telephone [facility] [address] [facility] [place] [id number] Elo Arriaga PA Referral 12/26/2023 11:30 AM CDT Ancillary Procedure [facility] [address] [place] [address] Arrived 12/26/2023 10:30 AM CDT Office Visit [facility] [address] [facility] [place] [id number] Elo Arriaga PA Lump (2 lumps on R side of neck x 1 month, seems to be getting bigger); Concerns (Havent been able to give blood the last 3 times due to low hemoglobin ) 12/26/2023 Travel 12/06/2023 Refill [facility] [address] [place] [id number] Elo Arriaga PA Refill Request (Pramipexole Dihydrochloride 0.25mg ) 10/05/2023 Telephone [facility] [address] [place] [id number] Elo Arriaga PA Medication Management (pramipexole (MIRAPEX) 0.125 mg tablet) from Last 3 Months Immunizations Name Administration Dates Next Due AMB INFLUENZA, IIV4 (AGE=>6M OS) MDV (Flu Clinic Only) 02/17/2020 COVID-19 vaccine (Moderna 100mcg/0.5mL) PF, MDV 06/15/2020,05/18/2020 Influenza RIV4 (Age 18+ Year s) PRESERV FREE 01/12/2021 Influenza Virus, Unspecified 02/24/2014 Influenza, IIV3 (Age 6-35 mos) 01/21/2010 Influenza, IIV4 02/07/2023,,02/08/2019,2016 Pneumococcal Poly,23-Valent (Pneumovax) 12/22/2009 Tdap 06/09/2023,08/30/2012 Zoster [...] Used Date Smoking Tobacco: Former Cigarettes 0.3 42.4 S tarted: 08/12/1981 Smokeless Tobacco: Never Tobacco [...] Outcome GA Total Labor Labor/2nd/3rd Weight Sex Type Anes PTL Nhi A1 A5 Name Clin Last Filed Vital Signs Vital Sign Reading Time Taken Comments Blood Pressure 136/73 12/26/2023 10:30 AM CDT Pulse 62 12/26/2023 10:30 AM CDT Temperature 36.8 ??C (98.2 ??F) 12/26/2023 10:30 AM C DT Respiratory Rate 16 11/24/2009 11:06 AM CDT Oxygen Saturation 96% 03/20/2023 7:43 AM HEAVY EQUIPMENT SALES MANAGER Inhaled Oxygen Concentration - - Weight 82.3 kg (181 lb 6.4 oz) 12/26/2023 10:30 AM CDT Height 162 cm (5' 3.78) 06/09/2023 1:10 PM HEAVY EQUIPMENT SALES MANAGER Body Mass Index 31.35 06/09/2023 1:10 PM HEAVY EQUIPMENT SALES MANAGER Plan of Treatment Health Maintenance Due Date Last Done Comments HIV for age 15-65 1977 Pneumococcal series for age 6-64 (2 of 2 - PCV) 12/22/2010 12/22/2009 Fecal testing non-DNA (FIT,FOBT,iFOBT) for age 45-75 08/19/2023 08/18/2022, 03/15/2021, 02/19/2020, Additional history exists Depression screening for age 12+ 11/09/2023 11/08/2022, 10/07/2021, 09/09/2020, Additional history exists Influenza for age 50-64 12/31/2023 02/08/20 23, 02/10/2022, 01/12/2021, Additional history exists Mammogram for age 45-75 02/23/2024 02/23/20 23, 02/21/2022, 02/19/2021, Additional history exists BMI (ht and wt on same day) for age 18+ 06/09/2024 06/09/2023, 05/10/2022, 08/20/2021, Additional history exists Lipids for age 45-75 06/09/2028 06/09/2023, 05/10/2022, 03/12/2021, Additional history exists Tetanus booster 06/09/2033 06/09/2023, 05/06/2012, 08/30/2012, Additional history exists Hepatitis C screening for ag e 18-79 Completed 07/29/2009 Zoster (shingles) series for age 50+ Completed 07/11/2022, 05/10/2022, 09/14/2012 COVID-19 vaccine series Completed 02/08/20, 02/16/2022, 03/03/2021, Additional history exists Tdap Completed 06/09/2023, 08/30/2012 Procedures Procedure Name Priority Date/Time Associated Diagnosis Comments CT NECK SOFT TISSUE W VALENTINO 12/26/2023 12:00 PM CDT Neck mass CREATININE,ISTAT Routine 12/26/2023 11:2 8 AM CDT Observation or evaluation for suspected condition T4,FREE Routine 12/26/2023 11:24 AM CDT Other specified hypothyroidism CBC WITH AUTO DIFFERENTIAL Routine 12/26/2023 11:24 AM CDT Anemia of unknown etiology VITAMIN B12 Routine 12/26/2023 11:24 AM CDT Anemia of unknown etiology BASIC METABOLIC PANEL Routine 12/26/2023 11:24 AM CDT Low sodium levels High potassium TSH WITH REFLEX Routine 12/26/2023 11:24 AM CDT Other specified hypothyroidism FERRITIN Routine 12/26/2023 11:24 AM CDT Anemia of unknown etiology CBC WITH AUTO DIFFERENTIAL Routine 12/26/2023 11:24 AM CDT Anemia of unknown etiology LIPID PANEL W REFLEX MEASURED LDL Routine 06/09/2023 1:58 PM HEAVY EQUIPMENT SALES MANAGER Screening cholesterol level XR MAMMO BILAT SCREENING Routine 02/22/2023 4:15 PM CDT Routine adult health maintenance OCCULT BLOOD IFOBT STOOL Routine 08/18/2022 4:37 PM CDT Screening for colon cancer ANTI HCV Timed 07/29/2009 11:31 AM CDT from Last 3 Months or Most Recently Relevant to Health Maintenance Results * CT NECK SOFT TISSUE W (12/26/2023 12:00 PM CDT) Anatomical Region Laterality Modality NECK Computed Tomogra phy 12/26/2023 1:42 PM CDT Impressions 12/26/2023 1:42 PM CDT Multiple enlarged right cervical lymph nodes, including a dominant right level II node, are indeterminate. Differential considerations include neoplastic etiologies such as metastatic disease or less likely lymphoma. Reactive etiologies could also have this appearance. Direct tissue sampling is recommended for further evaluation. Please note that all CT scans at this facility use dose modulation, iterative reconstruction, and/or weight-based dosing when appropriate to reduce radiation dose to as low as reasonably achievable. Dictated by Jimbo Lara MD @ 12/26/2023 1:42:36 PM (Electronically Signed) Narrative 12/26/2023 1:42 PM CDT For Patients: ??As a result of the Cures Act, medical imaging exams and procedure reports are released immediately into your electronic medical record. ??You may view this report before your referring provider. ??If you have questions, please contact your health care provider. Indication Neck mass. TECHNIQUE: CT images of the neck following intravenous contrast Comparison None. Findings The nasopharynx, oropharynx, hypopharynx, and larynx are widely patent and without enhancing lesions. The true vocal cords are adducted. No thickening of the epiglottis or retropharyngeal fluid. No enhancing lesions in the oral cavity or floor of mouth. The parotid and submandibular glands are unremarkable. The thyroid gland is unremarkable. Atherosclerotic plaque at the carotid bifurcations. Enlarged right level II, III, and V lymph nodes, including a dominant right level II lymph node demonstrating slight heterogeneous enhancement and measuring 2.7 cm. Limited images through the brain are without pathologic intracranial enhancement. Encephalomalacia inferior left frontal lobe. The visualized paranasal sinuses and mastoid air cells are clear. Multilevel cervical spondylosis. No aggressive osseous lesions. No concerning opacities in the visualized lungs. Procedure Note Jimbo Lara MD - 12/26/2023 For Patients: As a result of the Cures Act, medical imagingexams and procedure reports are released immediately into your electronicmedical record. You may view this report before your referring provider.If you have questions, please contact your health care provider. Indication Neck mass. TECHNIQUE: CT images of the neck following intravenous contrast Comparison None. Findings The nasopharynx, oropharynx, hypopharynx, and larynx are widely patent andwithout enhancing lesions. The true vocal cords are adducted. Nothickening of the epiglottis or retropharyngeal fluid. No enhancing lesions in the oral cavity or floor of mouth. The parotid and submandibular glands are unremarkable. The thyroid gland is unremarkable. Atherosclerotic plaque at the carotid bifurcations. Enlarged right level II, III, and V lymph nodes, including a dominantright level II lymph node demonstrating slight heterogeneous enhancementand measuring 2.7 cm. Limited images through the brain are without pathologic intracranialenhancement. Encephalomalacia inferior left frontal lobe. The visualized paranasal sinuses and mastoid air cells are clear. Multilevel cervical spondylosis. No aggressive osseous lesions. No concerning opacities in the visualized lungs. IMPRESSION: Multiple enlarged right cervical lymph nodes, including a dominant rightlevel II node, are indeterminate. Differential considerations includeneoplastic etiologies such as metastatic disease or less likely lymphoma.Reactive etiologies could also have this appearance. Direct tissuesampling is recommended for further evaluation. Please note that all CT scans at this facility use dose modulation,iterative reconstruction, and/or weight-based dosing when appropriate toreduce radiation dose to as low as reasonably achievable. Dictated by Jimbo Lara MD @ 12/26/2023 1:42:36 PM (Electronically Signed) Elo GARCIA CT * (ABNORMAL) CREATININE,ISTAT (12/26/2023 11:28 AM CDT) [facility] CREATININE, POCT 1.00 0.57 - 1.11 mg/dL 12/26/2023 11:31 AM CDT [facility] Comment:Caution: Patients ta cherrie Hydroxyurea have falsely increased iStat Creatinine results. Verify creatinine results ordering a Creatinine (87331.2) eGFR 64(L) >90 mL/min/1.7 3m2 12/26/2023 11:31 AM CDT [facility] Comment:As of 2021, eG FR is calculated by the CKD-EPI creatinine equation without race adjustment. eGFR can be influenced by muscle mass, exercise, and diet. The reported eGFR is an estimation only and is only applicable if the renal function is stable. Blood BLOOD SPECIMEN / Unknown 12/26/2023 11:28 AM CDT 12/26/2023 11:31 AM CDT Elo GARCIA CHEMISTRY [facility] [address] [place] [address], * CBC WITH AUTO DIFFERENTIAL (12/26/2023 11:24 AM CDT) [facility] WHITE BLOOD COUNT 6.2 4.5 - 11.0 thou/cu mm 12/26/2023 11:33 AM CDT [facility] RED BLOOD COUNT 4.17 4.00 - 5.20 mil/cu mm 12/26/2023 11:33 AM CDT [facility] HEMOGLOBIN 12.3 12.0 - 16.0 g/dL 12/26/2023 11:33 AM CDT [facility] HEMATOCRIT 37.0 33.0 - 51.0 % 12/26/2023 11:33 AM CDT [facility] MCV 89 80 - 100 fL 12/26/2023 11:33 AM CDT [facility] MCH 29.5 26.0 - 34.0 pg 12/26/2023 11:33 AM CDT [facility] MCHC 33.2 32.0 - 36.0 g/dL 12/26/2023 11:33 AM CDT [facility] RDW 14.6 11.5 - 15.5 % 12/26/2023 11:33 AM CDT [facility] PLATELET COUNT 247 140 - 440 thou/cu mm 12/26/2023 11:33 AM CDT [facility] MPV 10.1 6.5 - 11.0 fL 12/26/2023 11:33 AM CDT [facility] % NEUT 63.0 % 12/26/2023 11:33 AM CDT [facility] % LYMPH 24.4 % 12/26/2023 11:33 AM CDT [facility] % MONO 10.2 % 12/26/2023 11:33 AM CDT [facility] % EOS 1.6 % 12/26/2023 11:33 AM CDT [facility] % BASO 0.8 % 12/26/2023 11:33 AM CDT [facility] ABSOLUTE NEUTROPHILS 3.9 1.7 - 7.0 thou/cu mm 12/26/2023 11:33 AM CDT [facility] ABSOLUTE LYMPHOCYTES 1.5 0.9 - 2.9 thou/cu mm 12/26/2023 11:33 AM CDT [facility] ABSOLUTE MONOCYTES 0.6 <0.9 thou/cu mm 12/26/2023 11:33 AM CDT [facility] ABSOLUTE EOSINOPHILS 0.1 <0.5 thou/cu mm 12/26/2023 11:33 AM CDT [facility] ABSOLUTE BASOPHILS 0.1 <0.3 thou/cu mm 12/26/2023 11:33 AM CDT [facility] Blood BLOOD SPECIMEN / Unknown Venipuncture / Unknown 12/26/2023 11:24 AM CDT 12/26/2023 11:24 AM CDT Elo GARCIA HEMATOLOGY Performing Organization Address City/[facility]/ZIP Co de Phone Number [facility] [address] [place] [address], [place] [phone] * (ABNORMAL) TSH WITH REFLEX (12/26/2023 11:24 AM CDT) TSH 8.02(H) 0.27 - 4.20 uIU/mL 12/26/2023 7:47 PM CDT [facility] Blood BLOOD SPECIMEN / Unknown Venipuncture / Unknown 12/26/2023 11:24 AM CDT 12/26/2023 11:24 AM CDT Narrative [facility] - 12/26/2023 7:47 PM CDT In Adults, TSH values between 5.00 and 10.00 uIU/ml do not necessarily indicate the presence of Hypothyroidism. Correlation with clinical findings such as presence of goiter and/or Thyroperoxidase (TPO) Antibody may be helpful. For more information please refer to MARIUSZ 2004; 291: 228-238. Elo GARCIA CHEMISTRY Performing Organization Address City/[facility]/ZIP Co de Phone Number [facility] [address] [place] [address], [place] * T4,FREE (12/26/2023 11:24 AM CDT) T4,FREE 1.33 0.93 - 1.70 ng/dL 12/26/2023 11:45 PM CDT [facility] Blood BLOOD SPECIMEN / Unknown Venipuncture / Unknown 12/26/2023 11:24 AM CDT 12/26/2023 11:24 AM CDT Elo GARCIA CHEMISTRY [facility] [address] [place] [address], * (ABNORMAL) FERRITIN (12/26/2023 11:24 AM CDT) FERRITIN 6.1(L) 15.0 - 150.0 ng/mL 12/26/2023 7:48 PM CDT [facility] Blood BLOOD SPECIMEN / Unknown Venipuncture / Unknown 12/26/2023 11:24 AM CDT 12/26/2023 11:24 AM CDT Elo GARCIA CHEMISTRY Performing Organization Address [facility] Co de Phone Number [facility] [address] [place] [address], [place] * VITAMIN B12 (12/26/2023 11:24 AM CDT) VITAMIN B12 309 232 - 1,245 pg/mL 12/26/2023 7:47 PM CDT [facility] Blood BLOOD SPECIMEN / Unknown Venipuncture / Unknown 12/26/2023 11:24 AM CDT 12/26/2023 11:24 AM CDT Narrative [facility] - 12/26/2023 7:47 PM CDT Biotin supplements may cause clinically significant interference for this test assay. ??If interference is suspected, it is strongly recommended that biotin is discontinued for at least one week prior to retesting. Elo GARCIA CHEMISTRY Performing Organization Address City/[facility]/ZIP Co de Phone Number [facility] [address] [place] [address], * (ABNORMAL) BASIC METABOLIC PANEL (12/26/2023 11:24 AM CDT) SODIUM 132(L) 136 - 145 mmol/L 12/26/2023 7:47 PM T [facility] POTASSIUM 5.5(H) 3.5 - 5.1 mmol/L 12/26/2023 7:47 PM T [facility] CHLORIDE 96(L) 98 - 107 mmol/L 12/26/2023 7:47 PM T [facility] CO2,TOTAL 24 22 - 29 mmol/L 12/26/2023 7:47 PM T [facility] ANION GAP 12 5 - 18 12/26/2023 7:47 PM T [facility] GLUCOSE 98 70 - 99 mg/dL 12/26/2023 7:47 PM T [facility] CALCIUM 9.8 8.8 - 10.2 mg/dL 12/26/2023 7:47 PM T [facility] BUN 14 8 - 23 mg/dL 12/26/2023 7:47 PM [facility] CREATININE 0.90 0.50 - 0.90 mg/dL 12/26/2023 7:47 PM [facility] BUN/CREAT RATIO 16 10 - 20 7:47 PM T [facility] eGFR 73(L) >90 mL/min/1.7 3m2 12/26/2023 7:47 PM [facility] Comment:As of 2021, eG FR is calculated by the CKD-EPI creatinine equation without race adjustment. ??eGFR can be influenced by muscle mass, exercise, and diet. ??The reported eGFR is an estimation only and is only applicable if the renal function is stable. Blood BLOOD SPECIMEN / Unknown Venipuncture / Unknown 12/26/2023 11:24 AM CDT 12/26/2023 11:24 AM CDT Elo GARCIA CHEMISTRY [facility] [address] [place] [address], [place] * LIPID PANEL W REFLEX MEASURED LDL (06/09/2023 1:58 PM HEAVY EQUIPMENT SALES MANAGER) CHOLESTEROL,TOTAL 190 100 - 199 mg/dL 06/09/2023 9:24 PM HEAVY EQUIPMENT SALES MANAGER [facility] Comment: Cholesterol, Total Reference Ranges Desirable <200 mg/dL Borderline 200-239 mg/dL High >=240 mg/dL TRIGLYCERIDES 94 <150 mg/dL 06/09/2023 9:24 PM HEAVY EQUIPMENT SALES MANAGER [facility] HDL CHOLESTEROL 59 >40 mg/dL 9:24 PM HEAVY EQUIPMENT SALES MANAGER [facility] NON-HDL CHOLESTEROL 131 <145 mg/dl 06/09/2023 9:24 PM HEAVY EQUIPMENT SALES MANAGER [facility] CHOL/HDL RATIO 3.22 <4.50 06/09/2023 9:24 PM HEAVY EQUIPMENT SALES MANAGER [facility] LDL CHOLESTEROL 112 <=130 mg/dL 06/09/2023 9:24 PM HEAVY EQUIPMENT SALES MANAGER [facility] VLDL CHOLESTEROL 19 <=30 mg/dL 06/09/2023 9:24 PM HEAVY EQUIPMENT SALES MANAGER [facility] PROVIDER ORDERED STATUS RANDOM 06/09/2023 9:24 PM HEAVY EQUIPMENT SALES MANAGER [facility] Blood BLOOD SPECIMEN / Unknown Venipuncture / Unknown 06/09/2023 1:58 PM HEAVY EQUIPMENT SALES MANAGER 06/09/2023 1:58 PM HEAVY EQUIPMENT SALES MANAGER Elo GARCIA CHEMISTRY [facility] [address] [place] [address], [place] * XR MAMMO BILAT SCREENING (02/22/2023 4:15 PM CDT) Anatomical Region Laterality Modality BREASTS, Breast Left, Breast Right Bilateral Mammography Impressions 02/23/2023 1:57 PM CDT ??There is no radiographic evidence for malignancy. ??Recommend annual mammograms. MAMMOGRAM ASSESSMENT: ??ACR 1 Negative PATIENTS: You will also receive a letter with your examination results in an easy to read format. ??If you have questions about your results, please contact your referring provider. Narrative 02/23/2023 1:57 PM CDT For Patients: As a result of the Century Cures Act, medical imaging exams and procedure reports are released immediately into your electronic medical record. You may view this report before your referring provider. If you have questions, please contact your health care provider. XR MAMMO BILAT SCREENING [[id number]] CLINICAL HISTORY: ??This is an asymptomatic 62 y.o. patient. INDICATION FOR EXAM: Mammogram Screening. TECHNIQUE: CC & MLO views were obtained. ??This study was evaluated with the assistance of Computer-Aided Detection. COMPARISON FILM: Yes 02/21/22 [facility] 02/19/21 [facility] FINDINGS: ??The breasts have scattered areas of fibroglandular density. There are no dominant masses, suspicious micro calcifications or areas of architectural distortion. Elo GARCIA MAMMO * OCCULT BLOOD IFOBT STOOL (08/18/2022 4:37 PM CDT) STOOL BLOOD ,IFOBT Negative Negative 08/24/2022 9:22 AM CDT [facility] Stool STOOL SPECIMEN / Unknown Non-Blood / Unknown 08/18/2022 4:37 PM CDT 08/23/2022 4:37 PM CDT [facility]IA [facility] [address] [place] [address], * ANTI HCV (07/29/2009 11:31 AM CDT) ANTI HCV Non-reacti ve [facility] 07/29/2009 11:3 1 AM CDT 07/29/2009 11:30 AM CDT Walt Arriola MD SEND OUTS [facility] INTERNAL ZIP [phone] [address] from Last 3 Months or Most Recently Relevant to Health Maintenance Advance Directives * Full Code (Latest Code Status on File) Date Activated Date Inactivated Comments 11/18/2009 12:22 AM 11/24/2009 5:08 PM * Full Code Date Activated Date Inactivated Comments 10/05/2006 8:54 PM 10/17/2006 4:11 PM Care Teams Real Estate Transaction Coordinator Relationship Specialty Start Date End Date Elo Arriaga PA [address] [place] [address] PCP - General Physician Library Media Technician 02/19/21
--- NOTE | 2023-12-29 10:15 | CRLHL7_ITS ---
For Patients: As a result of the Century Cures Act, medical imaging exams and procedure reports are released immediately into your electronic medical record. You may view this report before your referring provider. If you have questions, please contact your health care provider. ULTRASOUND-GUIDED RIGHT CERVICAL LYMPH NODE BIOPSY CLINICAL HISTORY: Enlarged right cervical lymph node COMPARISON STUDIES: CT neck 12/26/2023 TECHNIQUE: Real-time ultrasound with image documentation was used for targeting the right neck lymph node lesion. Core biopsy specimens were obtained using an automated gun with a 18-gauge biopsy needle. CONSENT and TIME OUT: The procedure, risks, and alternatives were explained to the patient and a consent was signed. [place] Protocol was followed including pre-procedure verification that relevant information/documentation was available, reviewed and properly matched to the patient; consent accurate and complete; and equipment and supplies available. Time Out was conducted just prior to starting procedure to verify the four required elements: patient identity, correct side/site marked (if applicable), procedure, relevant images/results properly labeled and displayed (if applicable). PROCEDURE: The patient was positioned supine on the ultrasound table. The right side of the neck was prepped with ChloraPrep. 6 cc of 1 percent lidocaine used for local anesthesia. Core samples were obtained. The specimens were placed in 10% formalin and sent to the pathology department. Pressure was held on the biopsy site until all bleeding subsided. LATERALITY: Right neck LESION: Hypoechoic enlarged lymph node measuring 2.8 cm SUSPICION FOR MALIGNANCY: Moderately high NUMBER OF SAMPLES: 5 IMPRESSION: Ultrasound-guided right cervical lymph node biopsy. Dictated by Leoncio Cox MD @ 12/29/2023 12:21:58 PM (Electronically Signed)
== END 2023-12-29 09:56 | disposition home or self-care (01) ==
PROVIDERS: PCP Physician Assistant Medical; Visit Provider Physician Assistant Medical
DX: R59.0 Localized enlarged lymph nodes (principal)
CPT/HCPCS: 20206; 76942; 88305; 88341; 88342; 88360; 88361

== ENCOUNTER 2024-02-22 12:34 | Outpatient (CLI) | payer MEDICAID, SELFPAY ==
--- OUTSIDE RECORDS SUMMARY | 2024-02-22 12:37 | XMS_ITS | Clinical Summary ---
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 0 12/29/19 18 Active meclizine (ANTIVERT) 25 mg tabletIndications:V ertigo Take 1 Tablet (25 mg) by mouth every 8 hours if needed for Vertigo. 30 Tablet 12/28/19 22 Active polyethylene glycoL (MIRALAX) 17 gram/scoop powderIndications:C onstipation, unspecified constipation type Mix 1 scoop (17 g) in liquid then take by mouth once daily. 510 g 1 09/22/19 23 Active alendronate (FOSAMAX) 70 mg tabletIndications:O steoporosis, [...] MORNING. 90 Tablet 3 06/09/19 24 Active omeprazole (PRILOSEC) 20 mg Delayed-Release capsuleIndications: Gastrointestinal hemorrhage, unspecified gastrointestinal hemorrhage type Take 1 Capsule (20 mg) by mouth two times daily before meals. 180 Capsule 3 06/09/19 24 Active propranolol ER (INDERAL LA) 80 mg Cs24 Sustained-Release capsuleIndications: Essential hypertension Take 1 Capsule (80 mg) by mouth once daily. 90 Capsule 3 06/09/19 24 Active albuterol HFA (Ventolin HFA) 90 mcg/actuation inhalerIndications: Cough, unspecified type,COPD with chronic bronchitis (HC) Inhale 1-2 Puffs by mouth every 4 hours while awake. 18 g 06/09/19 24 Active folic acid 1 mg tabletIndications:G astrointestinal hemorrhage, unspecified gastrointestinal hemorrhage type Take 1 Tablet (1 mg) by mouth once daily. 90 Tablet 3 06/09/19 24 Active busPIRone (BUSPAR) 10 mg tabletIndications:A nxiety Take 1 Tablet (10 mg) by mouth two times daily. 180 Tablet 3 06/09/19 24 Active pramipexole (MIRAPEX) 0.25 mg tabletIndications:R LS (restless legs syndrome) Take 3 Tablets (0.75 mg) by mouth at bedtime. 270 Tablet 12/08/19 24 Active levothyroxine (SYNTHROID) 75 mcg tabletIndications:O ther specified hypothyroidism Take 1 Tablet (75 mcg) by mouth before breakfast. 90 Tablet 1 12/27/19 24 Active gabapentin (NEURONTIN) 300 mg capsule TAKE ONE CAPSULE BY MOUTH ONE TIME DAILY AT BEDTIME, do not take with temazepam* 04/11/20 23 Active Senna 8.6 mg tablet TAKE ONE TABLET BY MOUTH ONE TIME DAILY as needed for constipation.* 09/27/19 24 Active oxyCODONE (ROXICODONE) 5 mg immediate release tabletIndications:L aryngeal mass,Head and neck lymphadenopathy Take 1 Tablet (5 mg) by mouth every 4 hours if needed for Pain. 20 Tablet 02/02/20 24 Active acetaminophen (TYLENOL) 325 mg tabletIndications:L aryngeal mass,Head and neck lymphadenopathy Take 2 Tablets (650 mg) by mouth four times daily. Max acetaminophen dose: 4000mg in 24 hrs. 100 Tablet 02/02/20 24 Active ibuprofen (ADVIL; MOTRIN) 200 mg tabletIndications:L aryngeal mass,Head and neck lymphadenopathy Take 1 Tablet (200 mg) by mouth every 6 hours. 50 Tablet 02/02/20 24 Active amLODIPine (NORVASC) 10 mg tabletIndications:H TN (hypertension) Take 1 Tablet (10 mg) by mouth once daily. 90 Tablet 1 02/06/20 24 Active fluticasone propion-salmeteroL (Advair Diskus) 250-50 mcg/Dose diskus inhalerIndications: COPD with chronic bronchitis (HC) INHALE ONE PUFF BY MOUTH TWICE DAILY 3 Each 02/17/20 24 Active amLODIPine (NORVASC) 10 mg tabletIndications:H TN (hypertension) TAKE ONE TABLET BY MOUTH ONE TIME DAILY 90 Tablet 1 05/29/19 24 Discontinued(Re order (E-cancel not sent)) fluticasone propion-salmeteroL (Advair Diskus) 250-50 mcg/Dose diskus inhalerIndications: COPD with chronic bronchitis (HC) Inhale 1 Puff by mouth two times daily. 1 Each 2 06/09/19 24 024 Discontinued cyclobenzaprine (FLEXERIL) 10 mg tabletIndications:A cute bilateral thoracic back pain Take 1 Tablet (10 mg) by mouth 2 times daily if needed for Muscle Spasm. 20 Tablet 10/04/19 24 024 Discontinued(*P atient states no longer taking) polyethylene glycol-electrolyte (GOLYTELY) 236-22.74-6.74 -5.86 gram suspensionIndicatio ns:Encounter for screening colonoscopy Drink 2 liters the day before the procedure and 2 liters 6 hours prior to procedure. 4000 mL 01/12/20 24 024 Discontinued(*P atient states no longer taking) traMADoL (ULTRAM) 50 mg tablet TAKE ONE TABLET BY MOUTH EVERY SIX HOURS NEEDED FOR PAIN* 06/12/19 24 024 Discontinued(*P atient states no longer taking) oxyCODONE (ROXICODONE) 5 mg immediate release tablet TAKE ONE TABLET BY MOUTH EVERY SIX HOURS NEEDED FOR PAIN* 06/13/19 24 024 Discontinued(*P atient states no longer taking) Hospital, Clinic, or Other Facility Administered Medication Ordered Dose Route Frequency Start Date End Date Status fentaNYL (PF) (SUBLIMAZE) 50 mcg/mL injection 100 mcgIndications:Iron deficiency anemia, unspecified iron deficiency anemia type,Abnormal PET scan of colon,Hepatic cirrhosis, unspecified hepatic cirrhosis type, unspecified whether ascites present (HC),Polyp of colon, unspecified part of colon, unspecified type 100 mcg IV ONE TIME 01/24/2024 01/24/2024 Ended midazolam (VERSED) injection 3 mgIndications:Iron deficiency anemia, unspecified iron deficiency anemia type,Abnormal PET scan of colon,Hepatic cirrhosis, unspecified hepatic cirrhosis type, unspecified whether ascites present (HC),Polyp of colon, unspecified part of colon, unspecified type 3 mg IV ONE TIME 01/24/2024 01/24/2024 Discontinued midazolam (VERSED) injection 4 mgIndications:Iron deficiency anemia, unspecified iron deficiency anemia type,Abnormal PET scan of colon,Hepatic cirrhosis, unspecified hepatic cirrhosis type, unspecified whether ascites present (HC),Polyp of colon, unspecified part of colon, unspecified type 4 mg IV ONE TIME 01/24/2024 01/24/2024 Ended Active Problems Problem Noted Date Diagnosed Date Colon polyp 01/26/2024 Overview (01/26/2024): Colonoscopy 12/2023 2-TA, repeat in 7 years Chronic obstructive pulmonar y disease, unspecified COPD type 06/09/2023 H/O total hysterectomy 08/25/2021 COPD with chronic bronchitis 08/20/2021 Age-related osteoporosis wit hout current pathological fracture 01/05/2017 Vitamin D deficiency 12/14/2016 Pre-diabetes 10/17/2013 Menorrhagia 11/25/2010 Restless legs syndrome (RLS) 09/07/2010 Hyponatremia 11/18/2009 GI bleed 11/17/2009 Unspecified essential hypertension Hypothyroidism Resolved Problems Problem Noted Date Diagnosed Date Resolved Date Esophageal varices 11/26/2010 4 Alcohol Withdrawal Seizure 10/05/2006 0 05/10/2022 Alcohol withdrawal 10/05/2006 4 Encounters Date Type Department Care Team Description 02/22/2024 8:45 AM CDT Hospital Encounter [facility] [address] [place] [address] Breast mass, right 02/22/2024 Travel 02/14/2024 Refill [facility] [address] [place] [address] Elo Arriaga PA Refill Request (Advair Diskus) 02/13/2024 Telephone [facility] [address] [place] [address] Sonal Florentino Results (MRI Breast results) 02/05/2024 Orders Only [facility] [address] [phone] Shalonda Carrillo, Swollen Glands 02/05/2024 Telephone [facility] [address] [place] [address] Sonal Florentino Results (MRI Breast) 02/02/2024 9:56 AM CDT Anesthesia Event [address] MD Koenig, Crys Vines MD 02/02/2024 9:50 AM CDT - 02/02/2024 11:08 AM CDT Surgery [address] [address] Shalonda Carrillo DO LARYNGOSCOPY WITH BIOPSY 02/02/2024 7:34 AM CDT - 02/02/2024 2:26 PM CDT Hospital Encounter [address] [address] Shalonda Carrillo DO Laryngeal mass (Primary Dx); Head and neck lymphadenopathy Discharge Disposition: Home Self Care 02/02/2024 Refill [facility] [address] [place] [address] Elo Arriaga PA Refill Request (Amlodipine) 02/01/2024 3:37 PM CDT - 02/01/2024 11:59 PM CDT Hospital Encounter [facility] [address] [place] [address] Elo Arriaga PA Cancer of unknown origin (HC) 02/01/2024 Travel 01/31/2024 Lab Requisition [facility] [phone] Mai Ardon MD 01/30/2024 2:20 PM CDT Office Visit [address] [phone] Shalonda Carrillo DO Consult (Enlarged lymph node in neck/Cancer of unknown origin/CT 12/22/26/PET 01/11/24/) 01/30/2024 Telephone [place] [address] [place] [phone] Shalonda Carrillo DO Surgery Scheduled 01/30/2024 Travel 01/26/2024 Telephone [facility] [address] [facility] [address] Elo Arriaga PA 01/24/2024 10:00 AM CDT Office Visit [facility] [address] Gentry Morales MD Procedure (Colonoscopy) 01/24/2024 Travel 01/12/2024 1:30 PM CDT Orders Only [facility] [address] [facility] [address] Lab, [place] [facility] 01/12/2024 1:00 PM CDT Ancillary Procedure [facility] [address] [place] [address] 01/12/2024 Telephone [facility] [address] [facility] [address] Gentry Morales MD 01/11/2024 7:33 AM CDT - 01/11/2024 11:59 PM CDT Hospital Encounter [facility] [address] [place] [address] Elo Arriaga PA 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); Enlarged lymph node in neck 01/11/2024 Telephone [facility] [address] [place] [address] Elo Arriaga PA Procedure 01/11/2024 Travel 01/08/2024 Telephone [facility] [address] [place] [address] Elo Arriaga PA 01/08/2024 Medical Messaging [facility] [address] [place] [address] Elo Arriaga PA Biopsy 01/03/2024 4:25 PM CDT Orders Only [facility] [place] [place] [address] [place] [address] Lab 01/02/2024 Orders Only [facility] [address] [place] [address] Elo Arriaga PA 1 scan: (1-Ord) [facility], /S BIOPSY SOFT TISSUE NECK, 12/29/2023 12/29/2023 Lab Requisition [facility] [phone] Unknown, Doctor 12/27/2023 Telephone [facility] [address] [place] [address] Elo Arriaga PA Referral 12/26/2023 11:30 AM CDT Ancillary Procedure [facility] [address] [place] [address] 12/26/2023 10:30 AM CDT Office Visit [facility] [address] [place] [address] Elo Arriaga PA Lump (2 lumps on R side of neck x 1 month, seems to be getting bigger); Concerns (Havent been able to give blood the last 3 times due to low hemoglobin ) 12/26/2023 Travel 12/06/2023 Refill [facility] [address] [place] [address] Elo Arriaga PA Refill Request (Pramipexole Dihydrochloride 0.25mg ) from Last 3 Months Immunizations Name Administration [...] Used Date Smoking Tobacco: Former Cigarettes 0.3 42.5 S tarted: 08/12/1981 Smokeless Tobacco: Never Tobacco Cessation:Counseling Given: No Alcohol Use Standard Drinks/Week Comments No 0 [...] file 03/20/2023 Food Insecurity Answer Date Recorded Do you worry your food will run out before you are able to buy more? 1 03/20/2023 Transportation Needs Answer Date Record ed Lack of Transportation (Medical) 1 03/20/2023 Housing Stability Answer Date Recorded What is your housing situation today? 1 03/20/2023 Sex and Gender Information Value [...] Sign Reading Time Taken Comments Blood Pressure 148/74 02/02/2024 2:12 PM CDT Pulse 67 02/02/2024 2:12 PM CDT Temperature 37 ??C (98.6 ??F) 02/02/2024 2:12 PM CDT Respiratory Rate 19 02/02/2024 2:12 PM CDT Oxygen Saturation 98% 02/02/2024 2:12 PM CDT Inhaled Oxygen Concentration - - Weight 82.2 kg (181 lb 4.8 oz) 02/02/2024 8:18 A M CDT Height 157.5 cm (5' 2) 02/02/2024 8:18 AM CDT Body Mass Index 33.16 02/02/2024 8:18 AM CDT Plan of Treatment Health Maintenance Due Date Last Done Comments HIV for age 15-65 1977 Pneumococcal series for age 6-64 (2 of 2 - PCV) 12/22/2010 12/22/2009 Depression screening for age 12+ 11/09/2023 11/08/2022, 10/07/2021, 09/09/2020, Additional history exists COVID-19 vaccine series ( season) 2023 02/07/2023, 02/16/2022, 03/03/2021, Additional history exists Influenza for age 50-64 12/31/2023 02/08/20 23, 02/10/2022, 01/12/2021, Additional history exists BMI (ht and wt on same day) for age 18+ 06/09/2024 06/09/2023, 05/10/2022, 08/20/2021, Additional history exists Mammogram for age 45-75 02/21/2025 02/22/20 24, 01/12/2024, 02/22/2023, Additional history exists Lipids for age 45-75 06/09/2028 06/09/2023, 05/10/2022, 03/12/2021, Additional history exists Colonoscopy through age 75 01/28/203101/28, 01/24/2024, 01/24/2024 Tetanus booster 06/09/2033 06/09/2023, 06/2012, 08/30/2012, Additional history exists Hepatitis C screening for ag e 18-79 Completed 07/29/2009 Zoster (shingles) series for age 50+ Completed 07/11/2022, 05/10/2022, 09/14/2012 Tdap Completed 06/09/2023, 08/30/2012 Procedures Procedure Name Priority Date/Time Associated Diagnosis Comments US BREAST UNILATERAL RIGHT LIMITED VALENTINO 02/22/2024 10:04 AM CDT Breast mass, right XR MAMMO JAY UNI DIAG RIGHT VALENTINO 02/22/2024 9:21 AM CDT Breast mass, right PATH TISSUE EXAM Today 02/02/2024 10:19 AM CDT ENDOTRACHEAL TUBE Routine 02/02/2024 10:12 AM CDT ENDOTRACHEAL TUBE Routine 02/02/2024 10:12 AM CDT ENDOTRACHEAL TUBE Routine 02/02/2024 10:12 AM CDT ENDOTRACHEAL TUBE Routine 02/02/2024 10:12 AM CDT LARYNGOSCOPY WITH MICROSCOPE Class D Urgent 02/02/2024 9:46 AM CDT Head and neck lymphadenopathy Hypopharyngeal mass Case Notes 40 MIN [id number] and 30 degree bronchoscopes with camera.Pathology available for Frozen sectionsuction cautery available only Special Needs 5 ft 3.78 in, 82.3 kg, BMI 31.35COPD/inhalersSURGEON WILL COMPLETE H&P DOS SCAN-CARDIAC STRIP 02/02/2024 12:00 AM CDT MR BREAST CAD WWO BILATERAL STAT 02/01/2024 4:31 PM CDT Cancer of unknown origin (HC) QUANTITATIVE LYMPHOCYTE SUBSETS: T, B, AND NATURAL KILLER (NK) Routine 01/31/2024 12:06 PM CDT COLONOSCOPY DIAGNOSTIC STAT 01/29/2024 9:08 AM CDT 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) Enlarged lymph node in neck Abnormal PET scan of colon PATH TISSUE EXAM Routine 01/24/2024 10:30 AM CDT Iron deficiency anemia, unspecified iron deficiency anemia type Abnormal PET scan of colon Hepatic cirrhosis, unspecified hepatic cirrhosis type, unspecified whether ascites present (HC) Polyp of colon, unspecified part of colon, unspecified type ENDOSCOPY 01/24/2024 10:15 AM CDT COLONOSCOPY 01/24/2024 10:03 AM CDT XR MAMMO JAY BILAT SCREEN Routine 01/12/2024 1:33 PM CDT Breast cancer screening by mammogram CBC WITH AUTO DIFFERENTIAL Routine 01/12/2024 12:53 PM CDT 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) Enlarged lymph node in neck CA 125 Routine 01/12/2024 12:53 PM CDT 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) Enlarged lymph node in neck AFP TUMOR MARKER SERUM Routine 01/12/2024 12:53 PM CDT 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) Enlarged lymph node in neck CEA Routine 01/12/2024 12:53 PM CDT 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) Enlarged lymph node in neck CA 19-9 Routine 01/12/2024 12:53 PM CDT 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) Enlarged lymph node in neck COMP METABOLIC PANEL Routine 01/12/2024 12:53 PM CDT 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) Enlarged lymph node in neck CBC WITH AUTO DIFFERENTIAL Routine 01/12/2024 12:53 PM CDT 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) Enlarged lymph node in neck PET CT SKULL BASE TO MID THIGH INITIAL TREAT Routine 01/11/2024 9:15 AM CDT 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) Enlarged lymph node in neck OCCULT BLOOD IFOBT STOOL Routine 01/03/2024 8:02 PM CDT Screening for colon cancer LAB TRACKING EVENT Routine 12/29/2023 11:45 AM CDT PATH TISSUE EXAM Routine 12/29/2023 11:45 AM CDT US BIOPSY NECK SOFT TISSUE VALENTINO 12/29/2023 12:00 AM CDT Enlarged lymph node in neck CT NECK SOFT TISSUE W VALENTINO 12/26/2023 12:00 PM CDT Neck mass CREATININE,ISTAT Routine 12/26/2023 11:28 AM CDT Observation or evaluation for suspected [...] REFLEX MEASURED LDL Routine 06/09/2023 1:58 PM [employer] Screening cholesterol level ANTI HCV Timed 07/29/2009 11:31 AM CDT from Last 3 Months or Most Recently Relevant to Health Maintenance Results * US BREAST UNILATERAL RIGHT LIMITED (02/22/2024 10:04 AM CDT) Anatomical Region Laterality Modality BREASTS, Breast Right Right Ultrasound , Other Narrative 02/22/2024 11:58 AM CDT For Patients: As a result of the Century Cures Act, medical imaging exams and procedure reports are released immediately into your electronic medical record. ??You may view this report before your referring provider. ?? If you have questions, please contact your health care provider. RIGHT BREAST ULTRASOUND, 02/22/2024 PLEASE SEE [id number] FOR DIGITAL RIGHT MAMMOGRAM SAME DAY. Elo AGRCIA US * XR MAMMO JAY UNI DIAG RIGHT (02/22/2024 9:21 AM CDT) Anatomical Region Laterality Modality BREASTS, Breast Right Mammograph y, Other 02/22/2024 11:1 7 AM CDT Impressions 02/22/2024 11:58 AM CDT 1. No definitive abnormality noted on the mammogram images. 2. Small lymph node in question deep at the 9 o'clock position RIGHT breast is normal in size and morphologically normal in appearance. 3. Tiny anechoic nodule at the 12 to 1 o'clock position anterior RIGHT breast does not meet the strict criteria for a cyst. Recommend biopsy. Results of this study were discussed with the patient who has elected to proceed with the procedure today. BI-RADS Category 4: Suspicious Dictated by: Inder Nur MD @02/22/2024 11:17:38 AM/debra PATIENTS: You will also receive a letter with your examination results in an easy to read format. ??If you have questions about your results, please contact your referring provider. Narrative 02/22/2024 11:58 AM CDT For Patients: As a result of the Cures Act, medical imaging exams and procedure reports are released immediately into your electronic medical record. ??You may view this report before your referring provider. ?? If you have questions, please contact your health care provider. DIGITAL DIAGNOSTIC RIGHT MAMMOGRAM USING TOMOSYNTHESIS AND COMPUTER-AIDED DETECTION, 02/22/2024 RIGHT BREAST ULTRASOUND, 02/22/2024 INDICATION: Biopsied metastatic lymph node RIGHT neck with potential breast primary. MRI scan demonstrates a small lymph node deep in the upper outer RIGHT breast and possible asymmetry in the retroareolar region. TECHNIQUE: Diagnostic RIGHT mammogram with tomosynthesis and CAD, and RIGHT breast ultrasound. COMPARISON: Mammogram 01/12/2024. MRI BILATERAL breast 02/01/2024. FINDINGS: Mammography: There are areas of scattered fibroglandular density in the RIGHT breast. No discrete mass, architectural distortion or malignant calcification stands out on either the 2D or 3D images. Ultrasound: The lymph node in question on the MRI scan is well visualized at the 9 o'clock position 12 cm from the nipple measures 7 x 6 x 2.6 mm and has a morphologically normal appearance. A lymph node higher in the RIGHT axilla has a prominent fatty hilum. This was normal in appearance on the MRI scan. Ultrasound in the retroareolar region demonstrates a 2.0 x 2.3 mm hypoechoic nodule with very slight border regularity. This does not meet the strict criteria for cyst. Elo GARCIA MAMMO * PATH TISSUE EXAM (02/02/2024 10:19 AM CDT) Only the most recent of3 resultswithin the time period is included. Case Report Pathology Report ?Case: [id number] ? Authorizing Provider: ??Shalonda Carrillo, ??Collected: ? 02/02/2024 1019 ? Ordering Location: ? [facility] ?Received: ?02/02/2024 1022 ? Pathologist: ? Crys Jang MD ? Specimens: ?? A) - Other, Right inferior tonsil fossa (rule out malignancy) ? B) - Other, Right base of tongue (rule out malignancy) ? C) - Other, Right tonsil (rule out malignancy) ? D) - Other, Right Vallecula (rule out malignancy) ? 02/05/2024 4:34 PM CDT [facility] [employer] LABORAT[facility]-C ENTRAL LABORATORY Final Diagnosis A) RIGHT INFERIOR TONSIL FOSSA, BIOPSY: Benign tonsillar tissue B) RIGHT BASE OF TONGUE, BIOPSY: Benign tonsillar tissue C) RIGHT TONSIL, BIOPSY: Benign tonsillar tissue D) RIGHT VALLECULA, BIOPSY: 1. 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 The specimen is submitted entirely on 1 guru for frozen sections and the remnants are in A1. B) Received fresh labeled with the patient's name and right base of tongue, is a 0.8 x 0.4 x 0.2 cm aggregate of herzog-pink soft tissue fragments. The specimen is submitted entirely on 1 guru for frozen sections and the remnants in B1. C) Received fresh labeled with the patient's name and right tonsil, is a 1.0 x 0.8 x 0.3 cm aggregate of herzog-pink soft tissue fragments. The specimen is submitted entirely on 1 guru for frozen sections and the remnants are in C1. D) Received fresh labeled with the patient's name and right vallecular, is a 3.0 x 0.3 x 0.3 cm thin strip of soft tissue with possible mucosal surface. The specimen is submitted entirely intact on 1 guru for frozen section and the remnant is in D1. TTP 02/02/2024 02/05/2024 4:34 PM T [facility] Intraoperative Consultation A) TONSIL, RIGHT INFERIOR FOSSA, BIOPSY, INTRAOPERATIVE CONSULTATION WITH FROZEN SECTION(S): [Number of frozen sections prepared: 1 GURU] 1. Benign tonsillar tissue B) TONGUE, RIGHT BASE, BIOPSY, INTRAOPERATIVE CONSULTATION WITH FROZEN SECTION(S): [Number of frozen sections prepared: 1 GURU] 1. Benign tonsillar tissue Stephanie Coyne MD, 02/02/2024 10:37 AM C) TONSIL, RIGHT, BIOPSY, INTRAOPERATIVE CONSULTATION WITH FROZEN SECTION(S): [Number of frozen sections prepared: 1 GURU] 1. Benign tonsillar tissue Stephanie Coyne MD, 02/02/2024 10:53 AM D) VALLECULA, RIGHT, BIOPSY, INTRAOPERATIVE CONSULTATION WITH FROZEN SECTION(S): [Number of frozen sections prepared: 1 GURU] 1. Benign squamous mucosa and tonsillar tissue Stephanie Coyne MD, 02/02/2024 11:15 AM Intraoperative consultation, which may have included frozen section preparation, gross specimen examination, and/or cytology touch imprints/smears, was performed by a pathologist during the surgical procedure. ??This testing was performed at: [place] [address] 02/05/2024 4:34 PM CDT [facility] LABORAT[facility]-C ENTRTN LABORATORY Microscopic Description The final diagnosis is based on microscopic examination of appropriate sections of all specimens. 02/05/2024 4:34 PM CDT [facility] Additional Information Interpreted at [facility], Central Laboratory - [address] [place] [address] [address] [address] 02/05/2024 4:34 PM CDT [facility]TRTN LABORATORY Tissue (Other) 02/02/2024 10 :19 AM CDT 02/02/2024 10:22 AM CDT Tissue specimen (specimen) (Other) 02/02/2024 10:20 AM CDT 02/02/2024 10:22 AM CDT Tissue specimen (specimen) (Other) 02/02/2024 10:37 AM CDT 02/02/2024 10:40 AM CDT Tissue specimen (specimen) (Other) 02/02/2024 11:00 AM CDT 02/02/2024 11:01 AM CDT Shalonda Carrillo DO PATHOLOGY/CYTOLO [facility] [address] [place] [address], [facility] SEND[employer] INTERNAL ZIP [id number] [place] [id number] * [facility] TUBE PR1, [facility] INSTRUMENT DISP PR10, H[facility] STYLET PR1, H[facility] MOUTHPIECE PR1 (02/02/2024 10:12 AMCDT) Narrative Lenora Riley CRNA - 02/02/2024 10:12 AM CDT Lenora Riley CRNA ? 02/02/2024 10:13 AM Procedure: ETT Patient location during procedure: OR ETT Properties Mask Ventilation: easy Final Technique: video laryngoscopy Type: straight Location: oral Cuffed: yes Tube Size: 6.0 mm Stylet: yes Laryngoscope Blade: Glidescope Blade Size: 3 Cormack-Lehane Grade View: 1 Insertion Attempts: 1 Placement Verification: auscultation, end tidal CO2 and symmetrical chest wall movement Assessment: pharynx clear, atraumatic and dentition unchanged Secured at: other (comment) (18 at lips) Measured From: lips Tooth guard used and removed: yes Difficulty: 0 (not difficult) Mamie Lane MD ANESTHESIA PX NOTE ORDERABLES * SCAN-CARDIAC STRIP (02/02/2024 12:00 AM CDT) Narrative 02/02/2024 12:00 AM CDT Ordered by an unspecified provider. Other Clinical Staff OTHER * MR BREAST CAD WWO BILATERAL (02/01/2024 4:31 PM CDT) Anatomical Region Laterality Modality BREASTS, Breast Left, Breast Right Bilateral Magnetic Resonance 02/02/2024 10:0 5 AM CDT Narrative 02/02/2024 3:35 PM CDT For Patients: As a result of the Cures Act, medical imaging exams and procedure reports are released immediately into your electronic medical record. ??You may view this report before your referring provider. ?? If you have questions, please contact your health care provider. BILATERAL BREAST MRI WITHOUT AND WITH GADOLINIUM, 02/01/2024 CLINICAL HISTORY: Biopsy RIGHT neck enlarged lymph node showed metastatic carcinoma possible breast origin. She has only had a screening mammogram not a diagnostic mammogram. INDICATION FOR BREAST MRI: Problem-solving to look for metastatic disease unknown primary. COMPARISON STUDIES: BILATERAL screening mammogram 01/12/2024, 02/22/2023, 02/21/2022. CONTRAST: 20 mL Dotarem. TECHNIQUE: The patient was positioned prone using a breast coil. Multiple imaging sequences were obtained using 1-1.5 mm thick slices with no gap. The image sequences include T2-weighted STIR in the axial plane, T1-weighted nonfat-saturated gradient echo in the axial plane, pre- and post-contrast T1-weighted FLASH 3D with fat suppression in the axial plane, and T1-weighted FLASH high resolution 3D with fat suppression in the sagittal plane. Image post-processing was performed on a [employer] workstation. Complex 3D rendering including maximum intensity projections (MIPS) and volumetric renderings were obtained to optimize visualization of the extent of pathology and relationship to the nipple, skin, and chest wall. This aids in determining feasibility of breast conservation surgery. Subtraction, multiplanar reconstruction, mean curve determination, and angiogenesis mapping were also performed. The study was technically adequate. FINDINGS: Amount of Fibroglandular Tissue: Scattered fibroglandular. Breast Background Enhancement: Mild. RIGHT Breast: Indeterminate mass enhancement which may be an intramammary lymph node RIGHT breast low axilla 13 cm from the nipple, size 0.6 cm. LEFT Breast: No suspicious mass or non-mass enhancement. Lymph Nodes: Remainder of the BILATERAL axillary nodes negative. No enlarged internal mammary chain nodes. IMPRESSIONS AND RECOMMENDATIONS: Small indeterminate mass lymph node RIGHT breast. Recommend ultrasound with possible biopsy. Also consider obtaining a straight lateral diagnostic view RIGHT breast with the spot RIGHT CC view behind the nipple. LEFT breast is negative. No other suspicious nodes. BI-RADS Category 4: Suspicious Dictated by: Gwen Ocasio MD @02/02/2024 10:05:55 AM/jj Elo BURT * QUANTITATIVE LYMPHOCYTE SUBSETS: T, B, AND NATURAL KILLER (NK) (01/31/2024 12:06 PM CDT) ABSOLUTE LYMPH % 1,665 /cu mm 02/01/2024 12:34 PM CDT [facility] CD3+% 68 58 - 83 % 02/01/2024 12:34 PM CDT [facility] CD3+/CD4+% 50 31 - 62 % 02/01/2024 12:34 PM CDT [facility] CD3+/CD8+% 16 10 - 38 % 02/01/2024 12:34 PM CDT [facility] CD3-/CD19+% 12 6 - 24 % 02/01/2024 12:[address] [facility] CD3-/CD56+16+% 20 5 - 30 % 02/01/2024 12:34 PM CDT [facility] CD3+ ABSOLUTE 1,125 856 - 2,669 /cu mm 02/01/2024 12:34 PM CDT [facility] CD3+/CD4+ ABSOLUTE 828 491 - 1,734 /cu mm 02/01/2024 12:34 PM CDT [facility] CD3+/CD8+ ABSOLUTE 268 162 - 1,074 /cu mm 02/01/2024 12:34 PM CDT [facility] CD3-/CD19+ ABSOLUTE 205 73 - 562 /cu mm 02/01/2024 12:34 PM CDT [facility] CD3-/CD56+16+ ABSOLUTE 326 108 - 680 /cu mm 02/01/2024 12:34 PM CDT [facility] CD4:CD8 RATIO 3.08 02/01/2024 12:34 PM CDT [facility] Blood BLOOD SPECIMEN / Unknown Client Collect / Unknown 01/31/2024 12:06 PM CDT 01/31/2024 10:24 PM CDT [facility] - 02/01/2024 12:34 PM CDT Methodology: BD Multitest 6-Color TBNK with BD Trucount Tube Analytical Measurement Range (AMR) for absolute counts: CD3+ = 17 - 5,000/cu mm CD3+/CD4+ = 11 - 3,000/cu mm CD3+/CD8+ = 11 - 3,000/cu mm CD3-/CD19+ = 5 - 2,000/cu mm CD3-/(CD56+CD16)+ = 10 - 1,200/cu mm Mai Ardon MD LABORATORY [facility] [address] [place] [address], [place] * ENDOSCOPY (01/24/2024 10:15 AM CDT) 01/24/2024 10:1 5 AM CDT Narrative Transcriptions Gentry Morales MD - 01/24/2024 11:17 AM CDT Patient Name: Franci Jessica Procedure Date: 01/24/2024 Gender: Female Date of : 1960 Admit Type: Outpatient Procedure: Upper GI endoscopy Proceduralist: Gentry Morales MD , Eneida Tapia (Nurse), Adamaris Roland (Nurse) Indications/Pre-Op Diagnosis: Suspected upper gastrointestinal bleeding in patient with unexplained iron deficiency anemia, Liver cirrhosis, metastatic cancer- unknown primary Medications: Fentanyl 100 micrograms IV, Midazolam 4 mgIV, The level of sedation administered was moderate, (medications documented represent total dosages for multiple procedures) Procedure Description: Risk of bleeding, infection, perforation, need for surgery and alternatives discussed. The endoscope [id number]-[id number] was introduced through the mouth, and advanced to the third part of duodenum. The upper GI endoscopy was accomplished without difficulty. The patient tolerated the procedure well. Complications: No immediate complications. Estimated Blood Loss & Specimen: Estimated blood loss: none. Specimen collected - Yes and sent to Laboratory Findings: The examined esophagus was normal. The Z-line was regular and was found 37 cm from the incisors. Patchy mildly erythematous mucosa without bleeding was found in the gastric body and in the gastric antrum. Biopsies were taken with acold forceps for histology. The examined duodenum was normal. Biopsies were taken with a cold forceps for histology. Impressions/Post-Op Diagnosis: - Normal esophagus. - Z-line regular, 37 cm from the incisors. - Erythematous mucosa in the gastric body and antrum. Biopsied. - Normal examined duodenum. Biopsied. Recommendation: - Patient has a contact number available for emergencies. The signsand symptoms of potential delayed complications were discussed with the patient. Return to normal activities tomorrow. Written discharge instructions were provided to the patient. - Resume previous diet. - Continue present medications. - Await pathology results. Moderate Sedation: A time out was performed before the procedure. Moderate (conscious) sedation was administered by the endoscopy nurse and supervised bythe endoscopist. The following parameters were monitored: oxygensaturation, heart rate, blood pressure, EKG, CO2, respiratory rate, adequacy of pulmonary ventilation and reponse to care. Please refer to the patient's medical record flowsheets and nursing notes for moderate sedation details. Total physician intraservice time was 37 minutes. Gentry Morales MD 01/24/2024 11:17:17 AM This report has been signed electronically. Note Initiated On: 01/24/2024 10:15 AM Scope In: 10:26:21 AM Scope Out: 10:33:08 AM Gentry Morales MD PROCEDURE ORD * COLONOSCOPY (01/24/2024 10:03 AM CDT) 01/24/2024 10:0 3 AM CDT Narrative Transcriptions Gentry Morales MD - 01/24/2024 11:13 AM CDT Patient Name: Franci Jessica Procedure Date: 01/24/2024 Gender: Female Date of : 1960 Admit Type: Outpatient Procedure: Colonoscopy Proceduralist: Gentry Morales MD , Eneida Tapia (Nurse), Adamaris Roland (Nurse) Indications/Pre-Op Diagnosis: This is the patient's first colonoscopy,Iron deficiency anemia, abnromal PET scan of the colon Medications: Fentanyl 100 micrograms IV, Midazolam 4 mgIV, (medications documented represent totaldosages for multiple procedures) Procedure Description: The patient had risks, benefits and alternatives explained to andgave informed consent. The patient had a stable cardiopulmonary status and judged an adequate candidate for conscious sedation. The endoscope [id number]-[id number] [id number] was passed through the anus andadvanced to the cecum, identified by appendiceal orifice and ileocecal valve.The colonoscopy was performed without difficulty. The patient toleratedthe procedure well. The quality of the bowel preparation was good. The ileocecal valve, appendiceal orifice, and rectum were photographed. Complications: No immediate complications. Estimated Blood Loss & Specimen: Estimated blood loss: none. Specimen collected - Yes and sent to Laboratory Findings: The perianal and digital rectal examinations were normal. Two sessile polyps were found in the sigmoid colon. The polyps were 3to 4 mm in size. These polyps were removed with a cold snare. Resectionand retrieval were complete. The exam was otherwise without abnormality. Impressions/Post-Op Diagnosis: - Two 3 to 4 mm polyps in the sigmoid colon, removed with a coldsnare. Resected and retrieved. - The examination was otherwise normal. Recommendation: - Patient has a contact number available for emergencies. The signsand symptoms of potential delayed complications were discussed with the patient. Return to normal activities tomorrow. Written discharge instructions were provided to the patient. - Resume previous diet. - Continue present medications. - Await pathology results. - Repeat colonoscopy is recommended. The colonoscopy date will be determined after pathology results from today's exam become available for review. Moderate Sedation: A time out was performed before the procedure. Moderate (conscious) sedation was administered by the endoscopy nurse and supervised bythe endoscopist. The following parameters were monitored: oxygensaturation, heart rate, blood pressure, EKG, CO2, respiratory rate, adequacy of pulmonary ventilation and reponse to care. Please refer to the patient's medical record flowsheets and nursing notes for moderate sedation details. Total physician intraservice time was 37 minutes. Gentry Morales MD 01/24/2024 11:12:48 AM This report has been signed electronically. Note Initiated On: 01/24/2024 10:03 AM Procedure Code(s): --- Professional --- 45609, Colonoscopy, flexible; with removalof tumor(s), polyp(s), or other lesion(s) bysnare technique Diagnosis Code(s): --- Professional --- D12.5, Benign neoplasm of sigmoid colon D50.9, Iron deficiency anemia, unspecified CPT copyright 2022 [employer]. All rights reserved. The codes documented in this report are preliminary and upon act english tutor reviewmay be revised to meet current compliance requirements. Scope In: 10:36:04 AM Scope Withdrawal Time 0 hours 15 minutes 5 seconds Scope Out: 10:57:03 AM Gentry Morales MD PROCEDURE ORD * XR MAMMO JAY BILAT SCREEN (01/12/2024 1:33 PM CDT) Anatomical Region Laterality Modality BREASTS, Breast Left, Breast Right Bilateral Mammography Impressions 01/12/2024 3:30 PM CDT ??There is no radiographic evidence for malignancy. ??Recommend annual mammograms. MAMMOGRAM ASSESSMENT: ??ACR 1 Negative PATIENTS: You will also receive a letter with your examination results in an easy to read format. ??If you have questions about your results, please contact your referring provider. Narrative 01/12/2024 3:30 PM CDT For Patients: As a result of the 21st Century Cures Act, medical imaging exams and procedure reports are released immediately into your electronic medical record. You may view this report before your referring provider. If you have questions, please contact your health care provider. XR MAMMO JAY BILAT SCREEN [[id number]] CLINICAL HISTORY: ??This is an asymptomatic 63 y.o. patient. INDICATION FOR EXAM: Mammogram Screening. TECHNIQUE: CC & MLO views were obtained. ??This study was evaluated with the assistance of Computer-Aided Detection. Breast Tomosynthesis was used in interpretation. COMPARISON FILM: Yes 02/22/23 [facility] 02/21/22 [facility] FINDINGS: ??There are scattered areas of fibroglandular density. There are no dominant masses, suspicious micro calcifications or areas of architectural distortion. Elo GARCIA MAMMO * (ABNORMAL) CBC WITH AUTO DIFFERENTIAL (01/12/2024 12:53 PM CDT) Only the most recent of2 resultswithin the time period is included. WHITE BLOOD COUNT 6.4 4.5 - 11.0 thou/cu mm 01/12/2024 1:00 PM CDT [facility] RED BLOOD COUNT 3.97(L) 4.00 - 5.20 mil/cu mm 01/12/2024 1:00 PM CDT [facility] HEMOGLOBIN 11.9(L) 12.0 - 16.0 g/dL 01/12/2024 1:00 PM CDT [facility] HEMATOCRIT 35.6 33.0 - 51.0 % 01/12/2024 1:00 PM CDT [facility] MCV 90 80 - 100 fL 01/12/2024 1:00 PM CDT [facility] MCH 30.0 26.0 - 34.0 pg 01/12/2024 1:00 PM CDT [facility] MCHC 33.4 32.0 - 36.0 g/dL 01/12/2024 1:00 PM CDT [facility] RDW 14.0 11.5 - 15.5 % 01/12/2024 1:00 PM CDT [facility] PLATELET COUNT 237 140 - 440 thou/cu mm 01/12/2024 1:00 PM CDT [facility] MPV 10.0 6.5 - 11.0 fL 01/12/2024 1:00 PM CDT [facility] % NEUT 66.2 % 01/12/2024 1:00 PM CDT [facility] % LYMPH 22.8 % 01/12/2024 1:00 PM CDT [facility] % MONO 8.5 % 01/12/2024 1:00 PM CDT [facility] % EOS 1.9 % 01/12/2024 1:00 PM CDT [facility] % BASO 0.6 % 01/12/2024 1:00 PM CDT [facility] ABSOLUTE NEUTROPHILS 4.2 1.7 - 7.0 thou/cu mm 01/12/2024 1:00 PM CDT [facility] ABSOLUTE LYMPHOCYTES 1.5 0.9 - 2.9 thou/cu mm 01/12/2024 1:00 PM CDT [facility] ABSOLUTE MONOCYTES 0.5 <0.9 thou/cu mm 01/12/2024 1:00 PM CDT [facility] ABSOLUTE EOSINOPHILS 0.1 <0.5 thou/cu mm 01/12/2024 1:00 PM CDT [facility] ABSOLUTE BASOPHILS 0.0 <0.3 thou/cu mm 01/12/2024 1:00 PM CDT [facility] Blood BLOOD SPECIMEN / Unknown Venipuncture / Unknown 01/12/2024 12:53 PM CDT 01/12/2024 12:53 PM CDT Elo GARCIA HEMATOLOGY [facility] [address] [place] [address], * CA 125 (01/12/2024 12:53 PM CDT) CA 125 35.9 <38.2 U/mL 01/13/2024 12:01 AM CDT [facility] Blood BLOOD SPECIMEN / Unknown Venipuncture / Unknown 01/12/2024 12:53 PM CDT 01/12/2024 12:53 PM CDT Narrative [facility] - 01/13/2024 12:01 AM CDT The test method changed on 05/03/2022. If this test has been used for serial monitoring, rebaselining is recommended. Rebaselining consists of 2 measurements, collected 3-6 weeks apart. The [employer] CA 125 assay is an electrochemiluminescence immunoassay ECLIA performed on the [employer] immunoassy analyzers. ?? Values obtained with different assay methods may be different and cannot be used interchangeably. ? Biotin supplements may cause clinically significant interference for this test assay. If interference is suspected, it is strongly recomended that biotin is discontinued for at least one week prior to retesting. Elo GARCIA CHEMISTRY [facility] [address] [place] [id number], * CA 19-9 (01/12/2024 12:53 PM CDT) CA 19-9 12 <36 IU/mL 01/13/2024 12:01 AM CDT [facility] Blood BLOOD SPECIMEN / Unknown Venipuncture / Unknown 01/12/2024 12:53 PM CDT 01/12/2024 12:53 PM CDT Narrative [facility] - 01/13/2024 12:01 AM CDT The test method changed on 05/03/2022. If this test has been used for serial monitoring, rebaselining is recommended. Rebaselining consists of 2 measurements, collected 3-6 weeks apart. The [employer] CA 19-9 assay is an electrochemiluminescence immunoassay ECLIA performed on the [employer] immunoassy analyzers. ?? Values obtained with different assay methods may be different and cannot be used interchangeably. ? Biotin supplements may cause clinically significant interference for this test assay. If interference is suspected, it is strongly recomended that biotin is discontinued for at least one week prior to retesting. Elo GARCIA SEND OUTS [facility] [address] [place] [address], * CEA (01/12/2024 12:53 PM CDT) CEA 3.5 ng/mL 01/13/2024 12:01 AM CDT [facility] Blood BLOOD SPECIMEN / Unknown Venipuncture / Unknown 01/12/2024 12:53 PM CDT 01/12/2024 12:53 PM CDT Narrative [facility] - 01/13/2024 12:01 AM CDT ?CEA Ranges Age Range ? Reference Range 20 years up to 70 years (all subjects) ?<4.8 ng/mL 40 years up to 70 years (all subjects) ?<5.3 ng/mL 20 years up to 70 years (non smoker) ?<3.9 ng/mL 40 years up to 70 years (non smoker) ?<5.1 ng/mL 20 years up to 70 years (smoker) ?<5.6 ng/mL 40 years up to 70 years (smoker) ?<6.6 ng/mL The test method changed on 05/03/2022. If this test has been used for serial monitoring, rebaselining is recommended. Rebaselining consists of 2 measurements, collected 3-6 weeks apart. The [employer] CEA assay is an electrochemiluminescence immunoassay ECLIA performed on the [employer] immunoassy analyzers. ?? Values obtained with different assay methods may be different and cannot be used interchangeably. ? Biotin supplements may cause clinically significant interference for this test assay. If interference is suspected, it is strongly recomended that biotin is discontinued for at least one week prior to retesting. Elo GARCIA CHEMISTRY [facility] [address] [place] [address], * AFP TUMOR MARKER SERUM (01/12/2024 12:53 PM CDT) AFP TUMOR MARKER,SERUM <1.8 <=8.3 ng/mL 01/13/2024 12:05 AM CDT [facility] Blood BLOOD SPECIMEN / Unknown Venipuncture / Unknown 01/12/2024 12:53 PM CDT 01/12/2024 12:53 PM CDT Narrative [facility] - 01/13/2024 12:05 AM CDT The test method changed on 05/03/2022. If this test has been used for serial monitoring, rebaselining is recommended. Rebaselining consists of 2 measurements, collected 3-6 weeks apart. The [employer] AFP assay is an electrochemiluminescence immunoassay ECLIA performed on the [employer] immunoassy analyzers. Values obtained with different assay methods may be different and cannot be used interchangeably. Biotin supplements may cause clinically significant interference for this test assay. If interference is suspected, it is strongly recomended that biotin is discontinued for at least one week prior to retesting. Elo GARCIA SEND OUTS [facility] [address] [place] [address], * (ABNORMAL) COMP METABOLIC PANEL (01/12/2024 12:53 PM CDT) SODIUM 135(L) 136 - 145 mmol/L 01/13/2024 12:01 AM [facility] POTASSIUM 5.1 3.5 - 5.1 mmol/L 01/13/2024 12:01 AM [facility] CHLORIDE 99 98 - 107 mmol/L 01/13/2024 12:01 AM [facility] CO2,TOTAL 24 22 - 29 mmol/L 01/13/2024 12:01 AM [facility] ANION GAP 12 5 - 18 01/13/2024 12:01 AM [facility] GLUCOSE 91 70 - 99 mg/dL 01/13/2024 12:01 AM [facility] CALCIUM 9.5 8.8 - 10.2 mg/dL 01/13/2024 12:01 AM [facility] BUN 11 8 - 23 mg/dL 01/13/2024 12:01 AM [facility] CREATININE 0.82 0.50 - 0.90 mg/dL 01/13/2024 12:01 AM [facility] BUN/CREAT RATIO 13 10 - 20 12:01 AM [facility] eGFR 81(L) >90 mL/min/1.7 3m2 01/13/2024 12:01 AM CDT [facility] Comment:As of 2021, eG FR is calculated by the CKD-EPI creatinine equation without race adjustment. ??eGFR can be influenced by muscle mass, exercise, and diet. ??The reported eGFR is an estimation only and is only applicable if the renal function is stable. ALBUMIN 4.5 4.0 - 4.9 g/dL 01/13/2024 12:01 AM CDT [facility] PROTEIN,TOTAL 7.4 6.0 - 8.0 g/dL 01/13/2024 12:01 AM CDT [facility] BILIRUBIN,TOTAL 0.3 0.0 - 1.2 mg/dL 01/13/2024 12:01 AM CDT [facility] ALK PHOSPHATASE 137(H) 35 - 104 IU/L 01/13/2024 12:01 AM CDT [facility] ALT (SGPT) 24 10 - 35 IU/L 01/13/2024 12:01 AM CDT [facility] AST (SGOT) 27 10 - 35 IU/L 01/13/2024 12:01 AM CDT [facility] Blood BLOOD SPECIMEN / Unknown Venipuncture / Unknown 01/12/2024 12:53 PM CDT 01/12/2024 12:53 PM CDT Elo GARCIA [facility] [address] [place] [id number], * PET CT SKULL BASE TO MID THIGH INITIAL TREAT (01/11/2024 9:15 AM CDT) Anatomical Region Laterality Modality Positron Emissio n Tomography (PET) 01/11/2024 3:58 PM CDT Narrative 01/11/2024 3:58 PM CDT For Patients: ??As a result of the Century Cures Act, medical imaging exams and procedure reports are released immediately into your electronic medical record. ??You may view this report before your referring provider. ??If you have questions, please contact your health care provider. 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 Study ordered by primary care PA. Technique: The patient was injected with 13.2 millicuries of 18F-FDG (fluorodeoxyglucose). Following the appropriate delay interval, PET imaging from the mid brain to the mid thigh was obtained in conjunction with a noncontrast CT examination for improved localization and attenuation correction. The fused volume set was reviewed utilizing 3-D reconstruction. STAT, no rationale provided! ?? Blood glucose: 111 Comparison: CT neck 12/26/2023; chest series 07/30/2020 Findings: Max SUV within the liver today is 4.2. PET: Head and Neck: +28 x 20 millimeter right neck level 2a node present max SUV of 21. +13 x 11 millimeter right IIB node has a max SUV of 24. +9 millimeter right neck level 3 node has a max SUV of 13. Thorax: Normal physiologic distribution within the cardiovascular system. No focal areas of increased uptake are noted in the lung pryor or mediastinum. Abdomen/Pelvis: Focal avidity at the vaginal introitus is without noncontrast CT correlate and has a max SUV of 8. Focal somewhat linear increased avidity within the sigmoid colon is without noncontrast CT correlate and has a max SUV of 10.0. Bones/soft tissues: T7 compression fracture as avidity with a max SUV of 5.2. ADDITIONAL CT findings include moderate bilateral carotid artery atherosclerotic calcifications, moderate to severe multivessel coronary artery atherosclerotic calcifications, lingular atelectasis versus scarring, background emphysematous changes, nodular liver contour/cirrhotic changes, surgically absent uterus, moderate to severe abdominal aortic atherosclerotic calcifications, significant osteopenia versus osteoporosis correlate with DEXA T7 compression fracture timing of which can not be determined by this single study correlate with prior imaging, and lumbarization of S1. Impression: 1. Focal avidity within the sigmoid colon, differential diagnosis includes malignancy. Correlate with colonoscopy. 2. Avidity at the vaginal introitus is nonspecific, artifactual versus neoplastic. Correlate with physical examination. 3. T7 compression fracture of unknown chronicity with associated increased avidity, consider pathologic fracture. Correlate with patient history and prior imaging. Additionally, thoracic spine MR would further characterize. 4. Significant osteopenia. Correlate with DEXA. 5. Hepatic cirrhosis. 6. Intensely avid right neck nodes are consistent with metastatic disease. Recommend ENT and oncology evaluation. Dictated by Moustapha Blake MD @ 01/11/2024 3:58:12 PM (Electronically Signed) Procedure Note Moustapha Blake MD - 01/11/2024 For Patients: As a result of the Cures Act, medical imagingexams and procedure reports are released immediately into your electronicmedical record. You may view this report before your referring provider.If you have questions, please contact your health care provider. PET CT SKULL TO THIGH History: 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)positivecore needle biopsy, primary site unknown. Study ordered by primary carePA. Technique: The patient was injected with 13.2 millicuries of 18F-FDG(fluorodeoxyglucose). Following the appropriate delay interval, PETimaging from the mid brain to the mid thigh was obtained in conjunctionwith a noncontrast CT examination for improved localization andattenuation correction. The fused volume set was reviewed utilizing 3-Dreconstruction. STAT, no rationale provided! Blood glucose: 111 Comparison: CT neck 12/26/2023; chest series 07/30/2020 Findings: Max SUV within the liver today is 4.2. PET: Head and Neck: +28 x 20 millimeter right neck level 2a node present max SUV of 21. +13 x 11 millimeter right IIB node has a max SUV of 24. +9 millimeter right neck level 3 node has a max SUV of 13. Thorax: Normal physiologic distribution within the cardiovascular system. No focalareas of increased uptake are noted in the lung pryor or mediastinum. Abdomen/Pelvis: Focal avidity at the vaginal introitus is without noncontrast CTcorrelate and has a max SUV of 8. Focal somewhat linear increased avidity within the sigmoid colon iswithout noncontrast CT correlate and has a max SUV of 10.0. Bones/soft tissues: T7 compression fracture as avidity with a max SUV of 5.2. ADDITIONAL CT findings include moderate bilateral carotid arteryatherosclerotic calcifications, moderate to severe multivessel coronaryartery atherosclerotic calcifications, lingular atelectasis versusscarring, background emphysematous changes, nodular livercontour/cirrhotic changes, surgically absent uterus, moderate to severeabdominal aortic atherosclerotic calcifications, significant osteopeniaversus osteoporosis correlate with DEXA T7 compression fracture timing ofwhich can not be determined by this single study correlate with priorimaging, and lumbarization of S1. Impression: 1. Focal avidity within the sigmoid colon, differential diagnosis includesmalignancy. Correlate with colonoscopy. 2. Avidity at the vaginal introitus is nonspecific, artifactual versusneoplastic. Correlate with physical examination. 3. T7 compression fracture of unknown chronicity with associated increasedavidity, consider pathologic fracture. Correlate with patient history andprior imaging. Additionally, thoracic spine MR would further characterize. 4. Significant osteopenia. Correlate with DEXA. 5. Hepatic cirrhosis. 6. Intensely avid right neck nodes are consistent with metastatic disease.Recommend ENT and oncology evaluation. Dictated by Moustapha Blake MD @ 01/11/2024 3:58:12 PM (Electronically Signed) [facility] PET * OCCULT BLOOD IFOBT STOOL (01/03/2024 8:02 PM CDT) STOOL BLOOD ,IFOBT Negative Negative 01/05/2024 9:46 AM CDT [facility] Stool STOOL SPECIMEN / Unknown Non-Blood / Unknown 01/03/2024 8:02 PM CDT 01/03/2024 8:02 PM CDT [facility] [address] [place] [address], * LAB TRACKING EVENT (12/29/2023 11:45 AM CDT) Other (Other) Client Collect / Unknown 12/29/2023 11:45 AM CDT 12/29/2023 10:18 PM CDT Doctor Unknown LAB BILL ONLY [facility] [address] [place] [address], [place] * US BIOPSY NECK SOFT TISSUE (12/29/2023 12:00 AM CDT) Anatomical Region Laterality Modality NECK Ultrasound [facility] US * CT NECK SOFT TISSUE W (12/26/2023 [...] For Patients: ??As a result of the Century Cures Act, [...] For Patients: As a result of the 21st Century Cures Act, medical imagingexams and procedure reports [...] * (ABNORMAL) CREATININE,ISTAT (12/26/2023 11:28 AM CDT) CREATININE, POCT 1.00 0.57 - 1.11 mg/dL 12/26/2023 11:31 AM CDT [facility] Comment:Caution: Patients ta cherrie Hydroxyurea have falsely increased iStat Creatinine results. Verify creatinine results ordering a Creatinine (01938.2) eGFR 64(L) >90 mL/min/1.7 3m2 12/26/2023 11:31 AM CDT [facility] Comment:As of 2021, eG FR is calculated by the CKD-EPI creatinine equation without race adjustment. eGFR can be influenced by muscle mass, exercise, and diet. The reported eGFR is an estimation only and is only applicable if the renal function is stable. Blood BLOOD SPECIMEN / Unknown 12/26/2023 11:28 AM CDT 12/26/2023 11:31 AM CDT [facility] CHEMISTRY Performing Organization Address City/[facility]/ZIP Co de Phone Number [facility] [address] [place] [address], * (ABNORMAL) TSH WITH REFLEX (12/26/2023 11:24 AM CDT) TSH 8.02(H) 0.27 - 4.20 uIU/mL 12/26/2023 7:47 PM CDT [facility] Blood BLOOD SPECIMEN / Unknown Venipuncture / Unknown 12/26/2023 11:24 AM CDT 12/26/2023 11:24 AM CDT Narrative [facility] - 12/26/2023 7:47 PM CDT In Adults, TSH values between 5.00 and 10.00 uIU/ml do not necessarily indicate the presence of Hypothyroidism. Correlation with clinical findings such as presence of goiter and/or Thyroperoxidase (TPO) Antibody may be helpful. For more information please refer to MARIUSZ 2004; 291: 228-238. [facility] CHEMISTRY [facility] [address] [place] [address], * T4,FREE (12/26/2023 11:24 AM CDT) T4,FREE 1.33 0.93 - 1.70 ng/dL 12/26/2023 11:45 PM CDT [facility] Blood BLOOD SPECIMEN / Unknown Venipuncture / Unknown 12/26/2023 11:24 AM CDT 12/26/2023 11:24 AM CDT [facility] CHEMISTRY Performing Organization Address [facility]/ZIP Co de Phone Number [facility] [address] [address], [place] * (ABNORMAL) FERRITIN (12/26/2023 11:24 AM CDT) FERRITIN 6.1(L) 15.0 - 150.0 ng/mL 12/26/2023 7:48 PM CDT [facility] Blood BLOOD SPECIMEN / Unknown Venipuncture / Unknown 12/26/2023 11:24 AM CDT 12/26/2023 11:24 AM CDT [facility] CHEMISTRY Performing Organization Address [facility] de Phone Number [facility] [address] [address], [place] * VITAMIN B12 (12/26/2023 11:24 AM CDT) VITAMIN B12 309 232 - 1,245 pg/mL 12/26/2023 7:47 PM CDT [facility] Blood BLOOD SPECIMEN / Unknown Venipuncture / Unknown 12/26/2023 11:24 AM CDT 12/26/2023 11:24 AM CDT Narrative [facility] - 12/26/2023 7:47 PM CDT Biotin supplements may cause clinically significant interference for this test assay. ??If interference is suspected, it is strongly recommended that biotin is discontinued for at least one week prior to retesting. [facility] CHEMISTRY Performing Organization Address [facility] Co de Phone Number [facility] [address] [address], [place] * (ABNORMAL) BASIC METABOLIC PANEL (12/26/2023 11:24 AM CDT) SODIUM 132(L) 136 - 145 mmol/L 12/26/2023 7:47 PM CDT [facility] POTASSIUM 5.5(H) 3.5 - 5.1 mmol/L 12/26/2023 7:47 PM CDT [facility] CHLORIDE 96(L) 98 - 107 mmol/L 12/26/2023 7:47 PM CDT [facility] CO2,TOTAL 24 22 - 29 mmol/L 12/26/2023 7:47 PM CDT [facility] ANION GAP 12 5 - 18 12/26/2023 7:47 PM CDT [facility] GLUCOSE 98 70 - 99 mg/dL 12/26/2023 7:47 PM CDT [facility] CALCIUM 9.8 8.8 - 10.2 mg/dL 12/26/2023 7:47 PM T [facility] BUN 14 8 - 23 mg/dL 12/26/2023 7:47 PM T [facility] CREATININE 0.90 0.50 - 0.90 mg/dL 12/26/2023 7:47 PM T [facility] BUN/CREAT RATIO 16 10 - 20 7:47 PM T [facility] eGFR 73(L) >90 mL/min/1.7 3m2 12/26/2023 7:47 PM T [facility] Comment:As of 2021, eG FR is calculated by the CKD-EPI creatinine equation without race adjustment. ??eGFR can be influenced by muscle mass, exercise, and diet. ??The reported eGFR is an estimation only and is only applicable if the renal function is stable. Blood BLOOD SPECIMEN / Unknown Venipuncture / Unknown 12/26/2023 11:24 AM CDT 12/26/2023 11:24 AM CDT [facility]MI[facility] [address] [place] [address], [place] * LIPID PANEL W REFLEX MEASURED LDL (06/09/2023 1:58 PM [facility]) CHOLESTEROL,TOTAL 190 100 - 199 mg/dL 06/09/2023 9:24 PM [facility] Comment: Cholesterol, Total Reference Ranges Desirable <200 mg/dL Borderline 200-239 mg/dL High >=240 mg/dL TRIGLYCERIDES 94 <150 mg/dL 06/09/2023 9:24 PM [facility] HDL CHOLESTEROL 59 >40 mg/dL 9:24 PM [facility] NON-HDL CHOLESTEROL 131 <145 mg/dl 06/09/2023 9:24 PM [facility] CHOL/HDL RATIO 3.22 <4.50 06/09/2023 9:24 PM [facility] LDL CHOLESTEROL 112 <=130 mg/dL 06/09/2023 9:24 PM [facility] VLDL CHOLESTEROL 19 <=30 mg/dL 06/09/2023 9:24 PM [facility] PROVIDER ORDERED STATUS RANDOM 06/09/2023 9:24 PM [facility] Blood BLOOD SPECIMEN / Unknown Venipuncture / Unknown 06/09/2023 1:58 PM [facility] 06/09/2023 1:58 PM [facility] CHEMISTRY [facility] [address] [place] [address], [place] * ANTI HCV (07/29/2009 11:31 AM CDT) ANTI HCV Non-reacti ve [facility] 07/29/2009 11:3 1 AM CDT 07/29/2009 11:30 AM CDT Walt Arriola MD SEND OUTS [facility] INTERNAL ZIP [address] [address] from Last 3 Months or Most Recently Relevant to Health Maintenance Advance Directives * Full Code (Latest Code Status on File) Date Activated Date Inactivated Comments 02/02/2024 9:44 AM 02/02/2024 4:31 PM Question Answer Comments Code Status Discussion: Reviewed Preferences * Full Code Date Activated Date Inactivated Comments 11/18/2009 12:22 AM 11/24/2009 5:08 PM * Full Code Date Activated Date Inactivated Comments 10/05/2006 8:54 PM 10/17/2006 4:11 PM Care Teams Community Relations Police Lieutenant Relationship Specialty Start Date End Date Elo Arriaga PA [address] [place] [address] PCP - General Physician [employer] Manager 02/19/21
--- NOTE | 2024-02-22 13:00 | CRLHL7_ITS ---
For Patients: As a result of the Century Cures Act, medical imaging exams and procedure reports are released immediately into your electronic medical record. You may view this report before your referring provider. If you have questions, please contact your health care provider. DXA BONE MINERAL DENSITY STUDY Current height (in): 62.0. Weight (lb): 170.0. Menopause age: 52. Ethnicity: White. Reason for exam: Enlarged lymph nodes. 1. Have you had a previous hip or vertebral fracture? No. 2. Have you had any fractures during your adult life which did not result from significant trauma (e.g., auto accident)? No. 3. Did either of your parents have a hip fracture? No. 4. Do you smoke? No. 5. Have you ever taken Glucocorticoids? No. 6. Do you have rheumatoid arthritis? No. 7. Do you have secondary osteoporosis? Yes. 8. Do you drink 3 or more alcoholic drinks per day? No. 9. Are you being treated for osteoporosis? Yes. 10. Have you ever taken any of the following medications: Actonel, Evista, Fosamax, Miacalcin, Reclast, Boniva, Forteo, HRT (i.e. estrogen/hormone therapy), Protelos, Prolia, Vitamin D, Calcium, other ??? please specify. ANSWER: Yes, Fosamax, vitamin D, calcium. 11. Do you have any of the following medical conditions: Anorexia or bulimia, asthma or emphysema, end stage renal disease, hyperparathyroidism, any seizure disorders, cancer, inflammatory bowel diseases, hysterectomy, other ??? please specify. ANSWER: Yes, hysterectomy. 12. What was your maximum height (inches)? 64. 13. Do you perform weight bearing exercise regularly? No. 14. Do you regularly consume dairy products? No. 15. Do you drink caffeinated beverages? Yes. 16. At what age did your period start? 14. 17. Are you premenopausal? No. 18. How many full-term pregnancies have you had? 2. 19. Have you ever missed your period for more than 6 months in a row (not including or menopause)? No. TECHNIQUE: Bone mineral density study was performed using the Kiip. FINDINGS: The results of the study expressed as bone mineral density (BMD) are as follows: Lumbar spine L1 to L4: BMD: 0.658 g/cm2. T-score: -3.5. Z-score: -2.0 Neck Left: BMD: 0.593 g/cm2. T-score: -2.3. Z-score: -0.9 Right: BMD: 0.656 g/cm2. T-score: -1.7. Z-score: -0.4 Total Left: BMD: 0.767 g/cm2. T-score: -1.4. Z-score: -0.4 Right: BMD: 0.769 g/cm2. T-score: -1.4. Z-score: -0.4 IMPRESSION: Osteoporosis. Leoncio Cox M.D. Diagnostic Radiologist [email or web address] Transcribed: 12:44 pm DW/Dictated by: Leoncio Cox MD @ 02/23/2024 12:06:00 PM (Electronically Signed)
== END 2024-02-22 12:35 | disposition home or self-care (01) ==
LOC: RAD 12:35
PROVIDERS: PCP Physician Assistant Medical; Visit Provider Internal Medicine Hematology & Oncology
DX: R59.9 Enlarged lymph nodes, unspecified (principal); M81.0 Age-related osteoporosis without current pathological fracture
CPT/HCPCS: 77080

== ENCOUNTER 2024-03-11 14:11 | Outpatient (CLI) | payer MEDICAID, SELFPAY ==
--- NOTE | 2024-03-11 14:30 | CRLHL7_ITS ---
For Patients: As a result of the Cures Act, medical imaging exams and procedure reports are released immediately into your electronic medical record. You may view this report before your referring provider. If you have questions, please contact your health care provider. INDICATION: Cervical lymphadenopathy. Evaluate for intracranial neoplasm. TECHNIQUE: Brain MRI with and without contrast. 15 cc gadolinium based contrast administered. COMPARISON: Brain MRI from 08/11/2021. FINDINGS: No evidence of acute ischemia. No evidence of acute or chronic intracranial blood products. No mass or pathologic intracranial enhancement. Patchy FLAIR hyperintensities within the supratentorial white matter and brainstem, typical for chronic microvascular ischemic change. Left anterior basal encephalomalacia and gliosis, which could be due to remote ischemia or trauma. Left anterior cingulate cortical/juxta cortical encephalomalacia and gliosis, likely reflecting chronic infarct. No hydrocephalus or extra-axial collections. The pituitary gland, parasellar structures and optic chiasm are normal. Probable tiny chronic infarcts superior cerebellar vermis. All the major intracranial vascular structures demonstrate normal flow-related signal. The orbital contents are normal. No calvarial or skull base marrow signal abnormality. No obstructive sinus disease. No extracranial soft tissue findings. IMPRESSION: 1. No acute infarction. No evidence of intracranial neoplastic process. 2. Left anterior basal encephalomalacia and gliosis. Stable. 3. Mild chronic microvascular ischemic changes, chronic cortical infarct left cingulate gyrus and probable tiny chronic infarcts superior cerebellar vermis. Stable. Dictated by Chava oHrner MD @ 03/12/2024 11:23:53 AM (Electronically Signed)
--- NOTE | 2024-03-11 15:30 | CRLHL7_ITS ---
For Patients: As a result of the Century Cures Act, medical imaging exams and procedure reports are released immediately into your electronic medical record. You may view this report before your referring provider. If you have questions, please contact your health care provider. INDICATION: Enlarged lymph nodes. Malignancy. COMPARISON: None. TECHNIQUE: Sagittal T1, T2, and STIR sequences. Axial T2/gradient sequences. FINDINGS: Kyphosis of the midthoracic spine. There is an underlying acute subacute compression fracture of the T7 vertebral body with diffuse marrow edema and cortical irregularity along the inferior endplate. Corresponding enhancement is likely reactive. Retropulsion of the posterior inferior corner vertebral body measures approximately 4 mm. There is abnormal T2 and STIR hyperintensity of the cord at T7-8 which may be secondary to chronic myelomalacia, spondylotic myelopathy or sequela of cord contusion. Normal signal intensity within the remainder of the cord. Reactive mild marrow edema at the anterior inferior corner of T6 and anterior superior corner of T8. No ligamentous injury. No suspicious osseous lesions. Thoracic spondylosis. Multilevel disc degeneration. T7-8: Disc generation posted disc bulge. Combined with retropulsion of the posterior inferior corner of the compressed T7 vertebral body, there is moderate narrowing of spinal canal. Mild to moderate narrowing of the right neural foramen. Mild narrowing of the left neural foramen. T8-9, disc degeneration shallow right paracentral disc bulge. No spinal canal neural foraminal narrowing. T9-10: No spinal canal neural foraminal narrowing. No spinal canal neural foraminal narrowing at the remaining levels of the thoracic spine. Normal paraspinal soft tissues. IMPRESSION: 1. Kyphosis of the midthoracic spine. 2. Underlying acute to subacute compression fracture of the T7 vertebral body with diffuse marrow edema and cortical irregularity along the inferior endplate. Retropulsion of the posterior inferior corner vertebral body. 3. Abnormal T2 and STIR hyperintensity of the cord at T7-8 which may be secondary to chronic myelomalacia, spondylotic myelopathy or sequela of cord contusion 4. No suspicious osseous lesions. 5. Thoracic spondylosis 6. At T7-8, moderate narrowing of the spinal canal. [id number]-[id number]-tripejal narrowing of the right neural foramen. Mild narrowing of the left neural foramen. Dictated by Chaitanya Moran MD @ 03/12/2024 11:28:04 AM (Electronically Signed)
== END 2024-03-11 14:12 | disposition home or self-care (01) ==
LOC: MRI 14:12
PROVIDERS: PCP Physician Assistant Medical; Visit Provider Internal Medicine Hematology & Oncology
DX: R59.9 Enlarged lymph nodes, unspecified (principal); G93.89 Other specified disorders of brain; I67.82 Cerebral ischemia; C80.1 Malignant (primary) neoplasm, unspecified; R59.1 Generalized enlarged lymph nodes
CPT/HCPCS: 70553; 72157; A9575

== ENCOUNTER 2024-05-04 13:29 | Outpatient (CLI) | payer MEDICAID, SELFPAY ==
--- NOTE | 2024-05-04 13:30 | PE_ITS ---
[facility] [address] [facility] [address] Phone:?[phone] Fax:?[phone] Referring Physician Information: Mai Ardon M.D. [address] [facility] [address] Phone:?[phone] Fax:?[phone] Patient:?Franci Jessica D.O.B:?1960 Sex:?Female Phone:?[phone] [facility] MRN:?[id number] Exam Date:?05/04/2024 EXAM:?PET EYES TO THIGHS, CANCER RESTAGING CLINICAL INFORMATION: Head and neck cancer TECHNICAL INFORMATION: Helical acquisition of data was obtained from the vertex to the upper thighs with reconstruction of 3.75 mm thick images at 3.[address] data was used for attenuation correction. PET scanning was performed through the same anatomic range 60 minutes following administration of 12.34 mCi of 18-FDG delivered intravenously. The patient's glucose at the time of the injection was 101 mg/dL. PET, CT and PET/CT fusion images are interpreted using a computer viewing workstation. PET, CT and PET/CT fusion images were archived and saved in the patient's permanent medical record. COMPARISON: PET/CT 01/11/2024 INTERPRETATION: Mediastinal blood pool activity: 2.47 Background liver parenchymal uptake: 3.41 Head and Neck: There are no abnormal hypermetabolic foci within the head or neck. The previously visualized hypermetabolic right cervical chain lymph nodes are no longer present. There is physiologic uptake in the intracranial soft tissues. Chest: There are no abnormal hypermetabolic foci within the chest. No lung nodules or masses detected on this free-breathing exam. No lymphadenopathy detected. Coronary artery atherosclerosis. No pleural effusion or pneumothorax. Abdomen and Pelvis: There are no abnormal hypermetabolic foci within the abdomen or pelvis. There is physiologic excretion of radiotracer in the urine and bowel. Nodular liver margins. The uterus is absent. Normal appendix. Aortoiliac atherosclerosis. Skeleton, Musculature, and Integument: Unchanged compression deformity of the T7 vertebral body with an SUV max of 3.71, previously 5.2. No new suspicious osseous findings. CONCLUSION: * Since the prior PET/CT from 01/11/2024, there has been interval resolution of previously visualized hypermetabolic right cervical chain lymph nodes. * Unchanged compression deformity of the T7 vertebral body with slightly decreased metabolic activity from the comparison exam. * No new hypermetabolic metastasis. * Cirrhotic morphology of the liver. Electronically signed on 05/07/2024 10:28:00 AM by Cm Basilio D.O
== END 2024-05-04 13:30 | disposition home or self-care (01) ==
LOC: RAD 13:30
PROVIDERS: PCP Physician Assistant Medical; Visit Provider Internal Medicine Hematology & Oncology
DX: C77.0 Secondary and unspecified malignant neoplasm of lymph nodes of head, face and neck (principal); K74.60 Unspecified cirrhosis of liver
CPT/HCPCS: 78815; A9552

== ENCOUNTER 2024-06-05 09:30 | Outpatient (RCR) | payer MEDICAID, SELFPAY ==
[2024-01-31 12:30] LABS: Basophils Absolute Auto 0.01 K/uL (0.00-0.30); Basophils Percent Auto 0.2 % (0.0-3.0); Eosinophils Absolute Auto 0.08 K/uL (0.00-0.50); Eosinophils Percent Auto 1.3 % (0.0-7.0); Hematocrit 36.9 % (33.0-51.0); Hemoglobin* 12.3 gm/dL (12.0-16.0); Immature Granulocytes Abs Auto 0.02 K/uL (0.00-0.30); Immature Granulocytes Pct Auto 0.3 %; Lymphocytes Absolute Auto 1.49 K/uL (0.90-2.90); Mean Corpuscular HGB Conc 33 gm/dL (32-36); Mean Corpuscular Hemoglobin 30 pg (26-34); Mean Corpuscular Volume 89 fL (80-100); Monocytes Percent Auto 8.2 % (0.0-11.0); Neutrophils Absolute Auto 4.11 K/uL (1.7-7.0); Platelet Count* 229 K/uL (140-440); RDW Coefficient of Variation % 13.1 % (11.5-15.5); Red Blood Count 4.13 m/uL (4.00-5.20); White Blood Count* 6.22 K/uL (4.50-11.00)
[2024-01-31 12:33] LABS: Slide Review Reflex No
[2024-01-31 12:51] LABS: Albumin* 4.8 g/dL (3.3-5.0); Chloride* 99 mmol/L (96-114); Potassium* 4.6 mmol/L (3.6-5.1); Sodium* 133 mmol/L (135-149)
[2024-01-31 12:53] LABS: Bilirubin Total* 0.4 mg/dL (0.1-1.5); Creatinine* 0.7 mg/dL (0.5-1.5); Est. Creatinine Clearance* 46.73; Estimated Glomerular Filt Rate 98 ml/min
[2024-01-31 12:54] LABS: Alanine Aminotransferase* 23 U/L (4-35); Alkaline Phosphatase* 124 U/L (40-150); Anion Gap 9 mEq/L (7-15); Aspartate Amino Transferase* 29 U/L (12-35); Blood Urea Nitrogen* 14 mg/dL (7-30); Carbon Dioxide* 25 mmol/L (20-32); Glucose* 112 mg/dL (60-115); Total Protein* 8.2 g/dL (6.0-8.3)
[2024-01-31 12:55] LABS: Calcium* 9.6 mg/dL (8.4-10.6)
[2024-02-05 10:56] LABS: Alpha 1 Globulin 0.33 g/dL (0.19-0.46); Alpha 2 Globulin 1.03 g/dL (0.48-1.05); Immunofixation IFE Done; Immunoglobulin A 206 mg/dL (68-408); Immunoglobulin G 1112 mg/dL (768-1632); Immunoglobulin M 57 mg/dL (35-263); Kappa Qnt Free Light Chains 29.82 mg/L (3.30-19.40); Kappa/Lambda Light Chain Ratio 1.63 (0.26-1.65); Lambda Qnt Free Light Chains 18.34 mg/L (5.71-26.30); Total Protein, Serum 7.6 g/dL (6.3-8.2)
--- NOTE | 2024-03-14 14:17 | ONC.NURNOTE ---
Pt called to cancel follow up appt with Dr. Ardon on 04/01/24 because she is having a lymph node dissection on 04/01/24. Will update Dr. Ardon to see when pt would need to follow up with medical oncology.
--- NOTE | 2024-04-19 11:22 | ONC.NURNOTE ---
Addendum entered and electronically signed by Eneida Kuo APRN 04/25/24 09:54: 04/25/24 Dr. Ardon is updated with this information. Addendum entered by Yanira Solares RN 04/19/24 13:26: Upon reviewing appts with pt, she verbalizes she is unsure about proceeding with chemotherapy and would like to wait for the pre-op and port placement until after reviewing the Pet CT with Dr. Ardon 05/08. Pre-op moved to 05/10 2pm Port Plct moved to 05/13 time to be determined. Review updated appts with pt at 05/08 f/u appt when decides on treatment plan. Original Note: Upcoming Appts 04/29 1010 Pre-Op H&P: Elo Avalos @ [facility] 05/[address] 05/06 0800 Audiology Consult @ [facility] 05/06 time pending; port placement with Dr. Rodriguez at [facility] 05/08 0900 Rad Onc Consult 05/[address] Ardon f/u; chemo planning
--- NOTE | 2024-05-09 10:18 | ONC.NURNOTE ---
Radiation Consult faxed to [facility].
== END 2024-07-29 23:59 | disposition home or self-care (01) ==
LOC: CCIC 09:30
PROVIDERS: PCP Physician Assistant Medical; Referring Provider Physician Assistant Medical; Visit Provider Internal Medicine Hematology & Oncology
DX: C77.0 Secondary and unspecified malignant neoplasm of lymph nodes of head, face and neck (principal); R59.9 Enlarged lymph nodes, unspecified; M85.80 Other specified disorders of bone density and structure, unspecified site
CPT/HCPCS: 36415; 80053; 82784; 83520; 84155; 84165; 85025; 86334; 99202; 99205; 99213; 99214; 99215; G0463

== ENCOUNTER 2024-08-30 10:13 | Outpatient (CLI) | payer MEDICAID, SELFPAY ==
--- NOTE | 2024-08-30 10:30 | CRLHL7_ITS ---
For Patients: As a result of the Century Cures Act, medical imaging exams and procedure reports are released immediately into your electronic medical record. You may view this report before your referring provider. If you have questions, please contact your health care provider. INDICATION: Adenopathy. Right neck dissection. COMPARISON: PET scan 05/04/2024. TECHNIQUE: CT soft tissue neck with IV contrast. ICD 370, 88 cc. FINDINGS: Normal bilateral parotid glands. Normal left submandibular gland. Right submandibular gland surgically absent. Patient is status post right neck dissection. There is no new enlarged lymph nodes in the right neck. Scattered small normal-sized lymph nodes the left neck. No supraclavicular superior mediastinal adenopathy. No enlarged lymph nodes within visualized axilla. Nasopharynx and oropharynx are clear. No inflammation within the parapharyngeal fat pads are Rich ventral space. Normal thickness of the epiglottis. Normal glottis with symmetric vocal cords. Lung apices are clear. Normal alignment the cervical spine. No prevertebral soft tissue swelling. Visualized paranasal sinuses mastoid air cells are clear. IMPRESSION: 1. No adenopathy 2. Postoperative changes right neck dissection. Right submandibular gland is surgically absent. 3. Normal deep soft tissues of the neck Please note that all CT scans at this facility use dose modulation, iterative reconstruction, and/or weight-based dosing when appropriate to reduce radiation dose to as low as reasonably achievable. Dictated by Chaitanya Moran MD @ 08/31/2024 9:34:42 AM (Electronically Signed)
--- NOTE | 2024-08-30 10:30 | CRLHL7_ITS ---
For Patients: As a result of the Century Cures Act, medical imaging exams and procedure reports are released immediately into your electronic medical record. You may view this report before your referring provider. If you have questions, please contact your health care provider. INDICATION: Three month surveillance cancer involving the cervical lymph node; status post radical neck dissection right neck. COMPARISON: Two view chest 06/26/2016. TECHNIQUE: CT chest with intravenous contrast; coronal and sagittal reformats; 88 cc of Isovue 370 contrast was injected IV. FINDINGS: No evidence of supraclavicular lymphadenopathy on either side. The thyroid gland is unremarkable. No abnormal mediastinal or hilar lymphadenopathy. Coronary artery calcifications. Normal size cardiac silhouette without any pericardial effusion. No evidence of pleural effusion or chest wall pathology. Limited CT through the upper abdomen reveals subtle micro nodularity involving the surface of the liver; rule out liver cirrhosis. No nodules involving the pulmonary parenchyma. Compression fracture T7 with loss of 75 percent of its height; age indeterminate. This was not present on the previous chest film dated June 26, 2016. IMPRESSION: 1. Compression fracture T7 with loss of 75 percent of its height; age indeterminate. 2. Possible cirrhotic liver morphology; if clinically needed, suggest obtaining a multi phasic CT or MRI of the liver without and with intravenous contrast. 3. Negative CT chest with intravenous contrast otherwise Please note that all CT scans at this facility use dose modulation, iterative reconstruction, and/or weight-based dosing when appropriate to reduce radiation dose to as low as reasonably achievable. Dictated by Vitaly Richardson MD @ 09/02/2024 11:30:45 AM (Electronically Signed)
[2024-08-30 10:45] LABS: Creatinine* 0.8 mg/dL (0.5-1.5); Estimated Glomerular Filt Rate 83 ml/min
== END 2024-08-30 10:14 | disposition home or self-care (01) ==
LOC: CT 10:14
PROVIDERS: PCP Physician Assistant Medical; Visit Provider Clinical Nurse Specialist
DX: C80.1 Malignant (primary) neoplasm, unspecified (principal); Z98.890 Other specified postprocedural states
CPT/HCPCS: 36415; 70491; 71260; 82565; Q9967

== ENCOUNTER 2024-11-28 14:56 | Outpatient (CLI) | payer MEDICAID, SELFPAY ==
--- NOTE | 2024-11-28 15:30 | CRLHL7_ITS ---
For Patients: As a result of the Century Cures Act, medical imaging exams and procedure reports are released immediately into your electronic medical record. You may view this report before your referring provider. If you have questions, please contact your health care provider. 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 Restaging. TECHNIQUE: Radiopharmaceutical: 18F-fluorodeoxyglucose (18F-FDG) Dose: 13.31 MilliCurie. Blood glucose: 80 mg/dL. Image acquisition: At approximately 60 minutes following IV tracer administration via a left wrist vein, positron emission tomography was performed from the vertex through the mid thigh. Non-contrast low-dose helical CT imaging was performed over the same range without breath-hold for attenuation correction of PET images and anatomic correlation; it is neither sufficient, nor should it be substituted for diagnostic purposes. COMPARISON: FDG PET-CT 05/04/2024. FINDINGS: Mediastinal blood pool FDG uptake: SUVMax 2.7 (Image 95) Liver background parenchymal FDG uptake: SUVMax 3.8 (Image 140) PET Findings: No abnormal FDG avid lymphadenopathy. No abnormal FDG uptake in the visualized skeleton. Tracer uptake elsewhere is physiologic. Non-PET findings: Prior right neck dissection. Coronary artery calcifications. Atherosclerotic calcifications of the thoracic and abdominal aorta. Cardiomegaly. Cirrhotic liver morphology. Colonic diverticulosis. Hysterectomy. Severe T7 compression deformity. Multilevel degenerative changes in the spine. IMPRESSION: 1. No evidence of FDG avid malignancy. 2. Cirrhotic liver morphology. Dictated by Herbie Monk MD @ 12/02/2024 10:34:21 PM (Electronically Signed)
== END 2024-11-28 14:57 | disposition home or self-care (01) ==
LOC: RAD 14:57
PROVIDERS: PCP Physician Assistant Medical; Visit Provider Internal Medicine Hematology & Oncology
DX: C77.0 Secondary and unspecified malignant neoplasm of lymph nodes of head, face and neck (principal)
CPT/HCPCS: 78815; A9552

== ENCOUNTER 2024-12-04 10:30 | Outpatient (RCR) | payer MEDICAID, SELFPAY ==
[2024-11-28 16:22] LABS: Albumin* 4.8 g/dL (3.3-5.0); Chloride* 94 mmol/L (96-114)
[2024-11-28 16:23] LABS: Potassium* 4.6 mmol/L (3.6-5.1); Sodium* 131 mmol/L (135-149)
[2024-11-28 16:25] LABS: Alanine Aminotransferase* 28 U/L (4-35); Anion Gap 9 mEq/L (7-15); Aspartate Amino Transferase* 38 U/L (12-35); Blood Urea Nitrogen* 15 mg/dL (7-30); Carbon Dioxide* 28 mmol/L (20-32); Creatinine* 0.8 mg/dL (0.5-1.5); Est. Creatinine Clearance* 46.13; Estimated Glomerular Filt Rate 83 ml/min
[2024-11-28 16:26] LABS: Alkaline Phosphatase* 85 U/L (40-150); Bilirubin Total* 0.5 mg/dL (0.1-1.5); Calcium* 9.6 mg/dL (8.4-10.6); Glucose* 89 mg/dL (60-115); Total Protein* 8.2 g/dL (6.0-8.3)
[2024-11-28 16:34] LABS: Hematocrit* 38.8 % (33.0-51.0); Hemoglobin* 13.0 gm/dL (12.0-16.0); Immature Granulocytes Abs Auto 0.01 K/uL (0.00-0.30); Immature Granulocytes Pct Auto 0.2 %; Lymphocytes Absolute Auto 2.15 K/uL (0.90-2.90); Mean Corpuscular HGB Conc 34 gm/dL (32-36); Mean Corpuscular Hemoglobin 30 pg (26-34); Mean Corpuscular Volume 90 fL (80-100); RDW Coefficient of Variation % 13.2 % (11.5-15.5); Red Blood Count* 4.30 m/uL (4.00-5.20); White Blood Count* 6.64 K/uL (4.50-11.00)
[2024-11-28 16:47] LABS: Slide Review Reflex No
== END 2025-03-03 23:59 | disposition home or self-care (01) ==
LOC: CCIC 10:30
PROVIDERS: PCP Physician Assistant Medical; Referring Provider Physician Assistant Medical; Visit Provider Internal Medicine Hematology & Oncology
DX: C77.0 Secondary and unspecified malignant neoplasm of lymph nodes of head, face and neck (principal); M81.0 Age-related osteoporosis without current pathological fracture; K74.60 Unspecified cirrhosis of liver
CPT/HCPCS: 36415; 80053; 82105; 85025; 99214; G0463

== ENCOUNTER 2025-01-08 09:41 | Outpatient (CLI) | payer MEDICAID, SELFPAY ==
--- NOTE | 2025-01-08 10:00 | CRLHL7_ITS ---
For Patients: As a result of the Century Cures Act, medical imaging exams and procedure reports are released immediately into your electronic medical record. You may view this report before your referring provider. If you have questions, please contact your health care provider. INDICATION: Palpable lump. History of right neck dissection. COMPARISON: PET scan 11/28/[address] 08/30/2024. TECHNIQUE: CT soft tissue neck with IV contrast. Isovue 370, 85 cc IV. FINDINGS: A marker has been placed on the right posterolateral neck over the area of palpable abnormality (series 3, image 30). Within underlying subcutaneous fat, there is a small nodule measured approximate 4 mm in diameter (series 3, image 31) consistent with a lymph node. This node is present on the previous CT from 08/30/2024. No other soft tissue nodules or cystic lesions in the underlying soft tissues of the right posterior lateral neck. Normal bilateral parotid and left submandibular glands. Stable postoperative changes of right neck dissection. No focal soft tissue nodularity. Associated resection of the right submandibular gland. Mild atrophy of the thyroid gland. No enlarged cervical lymph nodes. No supraclavicular superior mediastinal adenopathy. Nasopharynx and oropharynx are clear. No inflammation within the parapharyngeal fat pads or retropharyngeal space. Normal thickness of the epiglottis. Normal glottis with symmetric vocal cords. Lung apices are clear. Normal alignment the cervical spine. No prevertebral soft tissue swelling. Visualized paranasal sinuses and mastoid air cells are clear. IMPRESSION: 1. Underlying the marker on the right posterolateral neck, there is a small soft tissue nodule measuring 4 millimeters in diameter consistent with a normal-sized lymph node. 2. No adenopathy 3. Stable postop changes of right neck dissection 4. Normal deep soft tissues of the neck. 5. No prevertebral soft tissue swelling Please note that all CT scans at this facility use dose modulation, iterative reconstruction, and/or weight-based dosing when appropriate to reduce radiation dose to as low as reasonably achievable. Dictated by Chaitanya Moran MD @ 01/09/2025 10:29:03 AM (Electronically Signed)
[2025-01-08 10:18] LABS: Creatinine* 0.7 mg/dL (0.5-1.5); Estimated Glomerular Filt Rate 98 ml/min
== END 2025-01-08 09:42 | disposition home or self-care (01) ==
PROVIDERS: PCP Physician Assistant Medical; Visit Provider Internal Medicine Hematology & Oncology
DX: R22.1 Localized swelling, mass and lump, neck (principal); C80.1 Malignant (primary) neoplasm, unspecified; Z98.890 Other specified postprocedural states
CPT/HCPCS: 36415; 70491; 82565; Q9967

== ENCOUNTER 2025-04-03 15:21 | Outpatient (CLI) | payer MEDICAID, SELFPAY ==
--- NOTE | 2025-04-03 16:00 | CRLHL7_ITS ---
For Patients: As a result of the 21st Century Cures Act, medical imaging exams and procedure reports are released immediately into your electronic medical record. You may view this report before your referring provider. If you have questions, please contact your health care provider. 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 Restaging. TECHNIQUE: Radiopharmaceutical: 18F-fluorodeoxyglucose (18F-FDG) Dose: 12.46 MilliCurie. Blood glucose: 100 mg/dL. Image acquisition: At approximately 60 minutes following IV tracer administration via a right antecubital vein, positron emission tomography was performed from the skull base through the mid thigh. Non-contrast low-dose helical CT imaging was performed over the same range without breath-hold for attenuation correction of PET images and anatomic correlation; it is neither sufficient, nor should it be substituted for diagnostic purposes. COMPARISON: FDG PET-CT 11/28/2024 FINDINGS: Mediastinal blood pool FDG uptake: SUVMax 2.5 (Image 115) Liver background parenchymal FDG uptake: SUVMax 3.1 (Image 157) PET Findings: Intracranial brain lesions are inadequately characterized and staged by FDG PET-CT. If there is clinical concern for intracranial metastatic disease, correlate with MRI brain with and without gadolinium contrast for assessment and characterization of intracranial lesions. Within these limitations, no gross abnormal focal increased FDG uptake intracranially. New mildly FDG avid 0.9 x 0.5 cm left level 2 cervical node SUVmax 2.6, (image 66). No other abnormal FDG avid lymphadenopathy. New moderately FDG avid subacute fracture in the right anterolateral 4th rib, favored to represent posttraumatic reactive/inflammatory FDG uptake. Correlate with clinical history for interval trauma to the right chest wall. No other abnormal focal increased FDG uptake in the visualized skeleton. FDG avid synovitis associated with degenerative changes in the bilateral shoulders. Tracer uptake elsewhere is physiologic. Non-PET findings: Prior right neck dissection. Scattered subsegmental atelectasis in the lungs. Coronary artery calcifications. Atherosclerotic calcifications of the thoracic and abdominal aorta. Cardiomegaly. Cirrhotic liver morphology. Colonic diverticulosis. Hysterectomy. Severe T7 compression deformity. Multilevel degenerative changes in the spine. IMPRESSION: 1. New mildly FDG avid left level 2 cervical node, subcentimeter in short axis, is nonspecific and may be reactive/inflammatory. Correlate with repeat FDG PET-CT in 2-3 months to assess for interval change/resolution. 2. No other definite evidence of FDG avid malignancy. 3. New moderately FDG avid subacute fracture in the right anterolateral 4th rib, favored to represent posttraumatic reactive/inflammatory FDG uptake. Correlate with clinical history for interval trauma to the right chest wall. 4. Cirrhotic liver morphology. Dictated by Herbie Monk MD @ 04/07/2025 1:09:47 PM (Electronically Signed)
== END 2025-04-03 15:22 | disposition home or self-care (01) ==
PROVIDERS: PCP Physician Assistant Medical; Visit Provider Internal Medicine Hematology & Oncology
DX: C77.0 Secondary and unspecified malignant neoplasm of lymph nodes of head, face and neck (principal); K74.60 Unspecified cirrhosis of liver
CPT/HCPCS: 36415; 78815; 82105; A9552